=== PATIENT | female | born 1960 | race African-American/Black ===

== ENCOUNTER 2017-04-17 09:11 | Inpatient (IN) ==
[2017-04-17] MEDS ORDERED: FUROSEMIDE 100 MG/10 ML VIAL IV STA (09:44)
[2017-04-17] MEDS ORDERED: methylPREDNISolone SOD SUC 125 MG/2 ML VIAL IV STA (09:44)
[2017-04-17] MEDS ORDERED: ONDANSETRON 4 MG/2 ML VIAL IV STA (09:44)
[2017-04-17] MEDS ORDERED: ASPIRIN 325 MG TABLET PO STA (09:44)
[2017-04-17] MEDS ORDERED: ALBUTEROL/IPRATROPIUM 3 ML NEB RESP TX STA (09:44)
[2017-04-17] MEDS ORDERED: FUROSEMIDE 40 MG/4 ML VIAL ONE (09:59)
[2017-04-17] MEDS ORDERED: ASPIRIN 325 MG TABLET ONE (10:00)
[2017-04-17] MEDS ORDERED: ONDANSETRON 4 MG/2 ML VIAL ONE (10:00)
[2017-04-17] MEDS ORDERED: methylPREDNISolone SOD SUC 125 MG/2 ML VIAL ONE (10:00)
--- NOTE | 2017-04-17 10:03 | EKG Report ---
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
--- NOTE | 2017-04-17 10:11 | XRay Report ---
XR chest 1V portable Indication: Shortness of breath Comparison: None. Technique: Portable AP chest was performed. Findings: Heart size is normal. Pulmonary vasculature appears within normal limits. No significant abnormality of the mediastinal contours demonstrated. Lungs are clear. Bones and soft tissues demonstrate no significant abnormalities. Impression: 1. No evidence of acute pathology. 04/17/2017 10:08 AM PROCEDURE INTERPRETED AT [facility] DEPARTMENT OF RADIOLOGY Final Report Signed by: Dr. Lex Pulido
[2017-04-17 10:18] LABS: ABG Base Excess -0.3 MMOL/L (-2.5-2.5); ABG HCO3 24.2 MMOL/L (20-26); ABG Oxygen Saturation 96.8 % (95-100); ABG PCO2 42.4 MM HG (35-48); ABG PH 7.377 (7.35-7.45); ABG PO2 99.1 MM HG (80-95); ABG TCO2 23.2 MMOL/L (23-27)
[2017-04-17 10:45] LABS: Basophils % 0.2 % (0.0-0.8); Eosinophils # 0.1 10*3/uL (0.0-0.87); Eosinophils % 0.5 % (0.00-10.9); Hematocrit 27.3 VOL% (35.7-47.0); Hemoglobin 8.2 GM/DL (12.0-16.0); Immature Granulocytes % 0.5 %; Immature Granulocytes Absolute 0.06 #; Lymphocytes # 1.8 10*3/uL (1.4-4.0); Lymphocytes % 16.2 % (21.3-54.2); Mean Corpuscular Hemoglobin 27 PG (27-34); Mean Corpuscular Volume 88.6 FL (87-102); Mean Platelet Volume 11.1 FL (9.6-12.0); Monocytes # 0.8 10*3/uL (0.11-0.8); Monocytes % 7.1 % (1.7-12.7); Neutrophils # 8.3 10*3/uL (1.4-7.4); Neutrophils % 75.5 % (38.7-73.9); Platelet Count 130 T/CUMM (130-400); Red Blood Count 3.08 MC/CUMM (3.8-5.5); Red Cell Distribution Width 15.3 % (9.3-17.3)
[2017-04-17 10:53] LABS: Apearance,Urine Slightly Hazy (Clear); Bilirubin,Urine Negative (Negative); Blood, Urine Negative (Negative); Glucose,Urine (UA) Negative (Negative); Hyaline Casts,Urine 25 /LPF (0-3); Ketones,Urine Negative (Negative); Mucus,Urine Occasional /LPF (Occasional); Nitrite,Urine Negative (Negative); Protein,Urine Negative; Urine Color Yellow (Yellow); Urine Specific Gravity 1.019 (1.001-1.035); WBC,Urine <1 /HPF (0-6)
[2017-04-17 10:57] LABS: INR 1.1; PT Patient Result 11.5 SECS
[2017-04-17 11:05] LABS: D-Dimer 13.3 MG/L FEU
--- NOTE | 2017-04-17 11:16 | Emergency Department Note ---
Kisha Magana Mantricia, am scribing for, and in the presence of, Sylvester Duffy MD 10:27. Tati Magana Charles R, MD, personally performed the services described in this documentation, ascribed by Nick Beard in my presence, and it is both accurate and complete . Arrival - Arrival Chief Complaint: Shortness of Breath Stated Complaint: shortness of breath ED Nursing Triage Note: Brought in per EMS from home with c/o shortness of breath onset this am. +productive cough with white sputum. +pedal edema. +left leg pain- denies injury. Denies fever or chest pain. Mode of Arrival: Stretcher Limitations: No Limitations Source: Patient Time Seen by Provider: 04/17/17 09:34 - History of Present Illness HPI Narrative: Pt is a 56 y/o black female arriving to ED with c/o SOB that onset yesterday. She reports that she has also been experiencing chest heaviness and difficulty moving. She states that she had a doctor's appointment this morning at 0930 but was unable to make it due to her difficulty breathing becoming so severe. She reports that sitting up is a modifying factor. Pt has a PMHx of colon cancer and states that she has been in remission for 20 years now; she has not had a chemotherapy session since then. She also c/o left leg pain s/p fx 3 years ago. She states that the injection given by Dr. Anthony on 03/25/17 has not relieved her pain. She states that it feels "like she is carrying loads of cement." Pt has a PSHx of cholecystectomy and a PMHx of HTN. No other complaints were reported to ED. Onset (ago): day(s) Consistency: constant Severity: mild Date of Last Menstrual Period: PM Allergies/Adverse Reactions: Allergies Allergy/AdvReac Type Severity Reaction Status Date / Time No Known Allergies Allergy Verified 04/17/17 09:22 Home Medications: Home Medications Medication Instructions Recorded Confirmed Type Glimepiride [Amaryl] 4 mg PO QAM 03/26/15 04/17/17 History Albuterol Sulfate [Proair HFA] 2 puff INH Q4H PRN 12/23/15 04/17/17 History Aspirin EC Tab 81 mg PO BEDTIME 12/23/15 04/17/17 History Folic Acid Tab 1 mg PO DAILY 12/23/15 04/17/17 History Insulin Glargine [Lantus] 70 unit SUBCUT BEDTIME 12/23/15 04/17/17 History Lansoprazole [Prevacid] 30 mg PO DAILY W/BREAKFAST 12/23/15 04/17/17 History Magnesium Oxide 400 mg PO TID 12/23/15 04/17/17 History Metformin HCl [Glucophage] 1,000 mg PO BID W/MEALS 12/23/15 04/17/17 History Amlodipine Besylate/Benazepril 1 capsule PO QAM 04/17/17 04/17/17 History [Amlodipine-Benazepril 10-40 mg] Biotin 10,000 mcg PO QAM 04/17/17 04/17/17 History Calcium Carbonate/Vitamin D3 1 each PO BID 04/17/17 04/17/17 History [Calcium 600-Vit D3 800 Tablet] Oxycodone HCl/Acetaminophen 1 each PO Q6H PRN 04/17/17 04/17/17 History [Percocet 10-325 mg Tablet] Potassium Chloride [Klor-Con M20] 20 meq PO QAM 04/17/17 04/17/17 History Pregabalin [Lyrica] 75 mg PO TID PRN 04/17/17 04/17/17 History Promethazine Tab [Phenergan Tab] 25 mg PO Q4H PRN 04/17/17 04/17/17 History Tizanidine HCl [Zanaflex] 4 mg PO TID PRN 04/17/17 04/17/17 History hydrALAZINE TAB [Apresoline Tab] 100 mg PO BID 04/17/17 04/17/17 History Review of System - Review of System 12 point system: reviewed and no additional remarkable complaints except as stated - Review of System Constitutional: Absent: chills, diaphoresis Respiratory: Present: respiratory distress (mild), other (SOB). Absent: cough, wheezing Cardiovascular: Absent: chest pain Gastrointestinal: Absent: abdominal pain, nausea, vomiting, diarrhea Musculoskeletal: Present: leg pain (left). Absent: arm pain, back pain, neck pain Medical,Surgical,& Family Hx - Medical History Cardio: History of: CHF, Hypertension Neurology: History of: Migraine No history of: Seizures HEENT: History of: Eye Problem (glasses) No history of: Glaucoma Endocrine: History of: Diabetes Mellitus (IDDM), Diabetes Mellitus (NIDDM), Dyslipidemia No history of: Thyroid Disorder Rheumatology: No history of;: Fibromyalgia Respiratory: History of: Asthma No history of: Obstructive Sleep Apnea Gastrointestinal: History of: GERD, Liver Problems (fatty liver), Polyps, Gastrointestinal Cancer ([id number]) No history of: Hepatitis Musculoskeletal: History of: Back/Neck Problems, Degenerative Disk Disease Hematology: No history of: Blood Transfusion Reaction Reproductive: History of: Ovarian Cysts Other: History of: Cancer (colon) No history of: Anesthesia Reactions - Surgical History Cardiac Surgeries: Patient Denies: Cardiac Catheterization HEENT Surgeries: Patient denies: Eye Surgery, Tonsilectomy & Adenoidectomy Abdominal Surgeries: Surgical HX of: Abdominal Surgery (part of colon removed), Appendectomy, Cholecystectomy, Colonoscopy, Gastric Bypass Surgery (2002), EGD, Hernia Repair Reproductive Surgeries: Surgical HX of;: Hysterectomy Patient denies;: Breast Surgery, Genitourinary Surgery Orthopedic Surgeries: Surgical HX of;: Orthopedic Surgery (left broken tib/fib) - Family History Family History: Reports;: Family Cancer (brother had colon cancer), Family Diabetes (dad and mom), Family Hypertension (father) - Social History Smoking Status: Never smoker Frequency of Alcohol Use: None Type of Drug Use: None Exam Vital Signs: Vital Signs Temperature 97.5 F L 04/17/17 09:11 Pulse Rate 98 H 04/17/17 10:14 Respiratory Rate 15 04/17/17 10:14 Blood Pressure 111/30 04/17/17 09:11 O2 Sat by Pulse Oximetry 96 04/17/17 10:14 - General General appearance: alert, in no apparent distress, obese - Head Head exam: Present: atraumatic, normocephalic, normal inspection - Eye Eye exam: Present: normal appearance, PERRL - ENT ENT exam: Present: normal exam, normal oropharynx, mucous membranes moist, TM's normal bilaterally, normal external ear exam - Neck Neck exam: Present: normal inspection, full ROM, trachea midline. Absent: tenderness - Chest Chest inspection: Present: normal inspection, symmetric chest wall rise. Absent : tenderness - Respiratory Respiratory exam: Present: normal lung sounds bilaterally (at base), rales, respiratory distress (mild) - Cardiovascular Cardiovascular exam: Present: normal rhythm, tachycardia, normal heart sounds - Abdominal Exam Abdominal exam: Present: soft, normal bowel sounds. Absent: distention, tenderness, guarding, rebound - Extremities Exam Extremities exam: Present: normal inspection, full ROM, normal capillary refill , pedal edema, other (+3 pitting edema LE bilat). Absent: tenderness - Back Exam Back exam: Present: normal inspection, full ROM. Absent: tenderness - Neurological Exam Neurological exam: Present: alert, oriented X3, CN II-XII intact, normal gait, reflexes normal - Psychiatric Psychiatric exam: Present: normal affect, normal mood - Skin Skin exam: Present: warm, dry, intact, normal color Course - Consultations Consultation #1: Hospitalist will admit patient Time: 13:10 Results - Labs CBC & BMP: 04/17/17 10:40 04/17/17 10:40 Lab Results: I have reviewed the patients labs Labs: Laboratory Tests 04/17/17 04/17/17 04/17/17 10:10 10:15 10:40 RBC 3.08 L Hgb 8.2 L Hct 27.3 L MCHC 30.0 L Neut % (Auto) 75.5 H Lymph % (Auto) 16.2 L Neut # (Auto) 8.3 H ABG pO2 99.1 H Potassium Anion Gap BUN Creatinine Glucose Calculated Osmolality Calcium Magnesium AST Albumin Globulin Albumin/Globulin Ratio Urine Urobilinogen 2.0 H 04/17/17 10:40 RBC Hgb Hct MCHC Neut % (Auto) Lymph % (Auto) Neut # (Auto) ABG pO2 Potassium 5.4 H Anion Gap 15.4 H BUN 68 H Creatinine 3.60 H Glucose 217 H Calculated Osmolality 309.1 H Calcium 8.4 L Magnesium 2.5 H AST 38 H Albumin 3.0 L Globulin 3.7 H Albumin/Globulin Ratio 0.8 L Urine Urobilinogen - Diagnostic Findings Procedure: Chest x-ray: report reviewed by me (No evidence of acute pathology.) Critical Care Time Critical Care Time: Yes Total Critical Care Time: 60 Disposition Clinical Impression: Tachycardia, Acute dyspnea, History of colon cancer, Hemoptysis, Renal failure , Suspected pulmonary embolism, DVT, bilateral lower limbs, Syncope, Hyperkalemia, diminished renal excretion Case discussed with: patient, patient's family Disposition: Still a Patient Condition: Critical Time of Disposition: 13:35 Contact your physician if you experience:: fever over 101, Difficulty voiding, Redness or swelling, Nausea/Vomiting, Shortness of breath, Bleeding, pain uncontrolled by pain medications, Other Return to the Emergency Department if:: fever over 101, Difficulty voiding, Redness or swelling, Nausea/Vomiting, Shortness of breath, Bleeding, pain uncontrolled by pain medications, Other
[2017-04-17 11:33] LABS: Alanine Aminotransferase 25 U/L (13-56); Alkaline Phosphatase 78 U/L (45-117); Aspartate Amino Transferase 38 U/L (0-37); Blood Urea Nitrogen 68 MG/DL (7-18); Calcium 8.4 MG/DL (8.5-10.1); Glucose 217 MG/DL (74-106); Magnesium 2.5 MG/DL (1.8-2.4); Osmolality,Calculated 309.1 MOS/KG (273-304); Potassium 5.4 MMOL/L (3.5-5.1); Sodium 142 MMOL/L (136-145); Total Protein 6.7 G/DL (6.4-8.3); Troponin I Only < 0.015 NG/ML (0.00-0.045)
--- NOTE | 2017-04-17 13:44 | Ultrasound Report ---
Venous Doppler ultrasound bilateral lower extremities Indication: Pain and swelling Comparison: None available Findings: There is occlusive thrombosis present throughout the left lower extremity. There is occlusion of the right common femoral vein with thrombosis. Remainder of the right lower extremity veins appear patent.. Color Doppler venous waveform pattern is within normal limits in the patent veins. Impression: Deep venous thrombosis as described above. Ultrasound images stored and captured. PROCEDURE INTERPRETED AT [facility] [place] DEPARTMENT OF RADIOLOGY Final Report Signed by: Dr. Wilberto Huerta
--- NOTE | 2017-04-17 14:47 | Hospitalist History & Physical ---
Assessment and Plan (1) Deep vein thrombosis (DVT) of both lower extremities Status: Acute Assessment and plan: Admit to CCU. Check labs in the a.m. Start anticoagulation therapy. Pain management. Current Visit: Yes (2) Hemoptysis Status: Acute Assessment and plan: Patient reports once coughing up a small amount of blood while in the ED. Will continue to monitor. Will continue oxygen therapy. Current Visit: Yes (3) Hyperkalemia Status: Acute Assessment and plan: K 5.4. Will repeat labs in the a.m. Current Visit: Yes (4) Acute renal injury Status: Acute Assessment and plan: BUN 68 and Creatinine 3.60; GFR 22. Will continue to monitor closely. Repeat a.m. labs and check for improvement after fluids. Current Visit: Yes (5) Acute dyspnea Status: Acute Assessment and plan: Improved after Lasix 40mg and oxygen therapy 2L NC (SATs 99% at exam). Will continue to Monitor. Current Visit: Yes History of Present Illness Chief complaint: shortness of breath History of present illness: Ms. Villafuerte is a 56 year old black female presented to [facility] for further evaluation of shortness of breath with onset 4 a.m.. PMHx: CHF, Hypertension, Migraine, Diabetes, Dyslipidemia, asthma, GERD, Fatty liver, Colon cancer (remission x20 years), Degenerative disk disease, ovarian cyst. She reports having IVC filter placed while in [place] at the time of her colon cancer diagnosis, "not sure of the reason but never had blood clots before". She reports getting up from bed and started feeling short of breath and feeling heaviness in her chest and legs. She reports normally ambulating without assistance but this morning had to use a cane to get to the door to let family into home. Since arrival to the ED: placed on oxygen and given 40 mg lasix, she reports feeling better and able to breath more easily. At exam SATs 99% and HR 104-177. She is able to talk without difficult and denies any chest pain, fever, chills. She reports coughing up a small amount of blood since her arrival to the ED but nothing prior. She sees Dr Arguelles for chronic left leg pain (s/p fx 3 years ago) and back pain, last seen 03/25/17. PCP: Dr Suarez. After discussion with ED physician Dr Duffy and Dr Freeman hospitalist services, it was agreed the patient would need to be admitted to critical care unit for further close monitor and evaluation. Home medications will be reviewed and reconciliation to follow. Home Medications Medication Instructions Recorded Confirmed Type Glimepiride [Amaryl] 4 mg PO QAM 03/26/15 04/17/17 History Albuterol Sulfate [Proair HFA] 2 puff INH Q4H PRN 12/23/15 04/17/17 History Aspirin EC Tab 81 mg PO BEDTIME 12/23/15 04/17/17 History Folic Acid Tab 1 mg PO DAILY 12/23/15 04/17/17 History Insulin Glargine [Lantus] 70 unit SUBCUT BEDTIME 12/23/15 04/17/17 History Lansoprazole [Prevacid] 30 mg PO DAILY W/BREAKFAST 12/23/15 04/17/17 History Magnesium Oxide 400 mg PO TID 12/23/15 04/17/17 History Metformin HCl [Glucophage] 1,000 mg PO BID W/MEALS 12/23/15 04/17/17 History Amlodipine Besylate/Benazepril 1 capsule PO QAM 04/17/17 04/17/17 History [Amlodipine-Benazepril 10-40 mg] Biotin 10,000 mcg PO QAM 04/17/17 04/17/17 History Calcium Carbonate/Vitamin D3 1 each PO BID 04/17/17 04/17/17 History [Calcium 600-Vit D3 800 Tablet] Oxycodone HCl/Acetaminophen 1 each PO Q6H PRN 04/17/17 04/17/17 History [Percocet 10-325 mg Tablet] Potassium Chloride [Klor-Con M20] 20 meq PO QAM 04/17/17 04/17/17 History Pregabalin [Lyrica] 75 mg PO TID PRN 04/17/17 04/17/17 History Promethazine Tab [Phenergan Tab] 25 mg PO Q4H PRN 04/17/17 04/17/17 History Tizanidine HCl [Zanaflex] 4 mg PO TID PRN 04/17/17 04/17/17 History hydrALAZINE TAB [Apresoline Tab] 100 mg PO BID 04/17/17 04/17/17 History Allergies Allergy/AdvReac Type Severity Reaction Status Date / Time No Known Allergies Allergy Verified 04/17/17 09:22 Medical,Surgical,& Family Hx - Medical History Cardio: History of: CHF, Hypertension Neurology: History of: Migraine No history of: Seizures HEENT: History of: Eye Problem (glasses) No history of: Glaucoma Endocrine: History of: Diabetes Mellitus (IDDM), Diabetes Mellitus (NIDDM), Dyslipidemia No history of: Thyroid Disorder Rheumatology: No history of;: Fibromyalgia Respiratory: History of: Asthma No history of: Obstructive Sleep Apnea Gastrointestinal: History of: GERD, Liver Problems (fatty liver), Polyps, Gastrointestinal Cancer ([id number]) No history of: Hepatitis Musculoskeletal: History of: Back/Neck Problems, Degenerative Disk Disease Hematology: No history of: Blood Transfusion Reaction Reproductive: History of: Ovarian Cysts Other: History of: Cancer (colon) No history of: Anesthesia Reactions - Surgical History Cardiac Surgeries: Patient Denies: Cardiac Catheterization HEENT Surgeries: Patient denies: Eye Surgery, Tonsilectomy & Adenoidectomy Abdominal Surgeries: Surgical HX of: Abdominal Surgery (part of colon removed), Appendectomy, Cholecystectomy, Colonoscopy, Gastric Bypass Surgery (2002), EGD, Hernia Repair Reproductive Surgeries: Surgical HX of;: Hysterectomy Patient denies;: Breast Surgery, Genitourinary Surgery Orthopedic Surgeries: Surgical HX of;: Orthopedic Surgery (left broken tib/fib) - Family History Family History: Reports;: Family Cancer (brother had colon cancer), Family Diabetes (dad and mom), Family Hypertension (father) - Social History Smoking Status: Never smoker Frequency of Alcohol Use: None Type of Drug Use: None Lives With:: Alone Functional capacity: independent ambulation Review of systems: ROS completed and pertinent positives and negatives in HPI. Exam - Constitutional Vitals: Period Temp Pulse Resp BP Sys/Hernandez Pulse Ox Last 24 Hr 97.5 F-97.5 F 98-109 14-24 111-111/30-30 95-98 General appearance: over weight - Head Head exam: Present: normal inspection - Eye Eye exam: Present: EOMI Pupils: Present: ARIAN - Neck Neck exam: Present: normal inspection. Absent: thyromegaly - Respiratory Respiratory exam: Present: clear to auscultation bilaterally - Cardiovascular Cardiovascular exam: Present: tachycardia (104-177s) - GI/Abdominal GI/Abdominal exam: Present: normal bowel sounds, soft. Absent: guarding, tenderness, rebound - Extremities Exam Extremities exam: Present: full ROM, edema (LLE 3+ edema and RLE 2+ edema) - Neurological Exam Neurological exam: Present: alert, oriented X3, CN II-XII intact - Psychiatric Psychiatric exam: Present: normal affect, normal mood - Skin Skin exam: Present: normal color, warm, dry Results - Labs CBC & BMP: 04/17/17 10:40 04/17/17 10:40 Lab Results: I have reviewed the past 24 hour labs - Impressions Venous Doppler ultrasound bilateral lower extremities Indication: Pain and swelling Comparison: None available Findings: There is occlusive thrombosis present throughout the left lower extremity. There is occlusion of the right common femoral vein with thrombosis. Remainder of the right lower extremity veins appear patent.. Color Doppler venous waveform pattern is within normal limits in the patent veins. Impression: Deep venous thrombosis as described above. - Diagnostic Findings Procedure: Chest x-ray: report reviewed by me (no evidence of acute pathology), Ultrasound: report reviewed by me (venous doppler: deep venous thrombosis: occlusive thrombosis present throughout the left lower extremity, there is occlusion of the right common femoral vein with trhombosis)
[2017-04-17] MEDS ORDERED: ACETAMINOPHEN 325 MG TABLET PO PRN (15:16)
[2017-04-17] MEDS ORDERED: ONDANSETRON 4 MG/2 ML VIAL IV PRN (15:16)
[2017-04-17] MEDS ORDERED: DEXTROSE 50% 25 GM/50 ML VIAL IV PRN (15:25)
[2017-04-17] MEDS ORDERED: GLUCAGON 1 MG VIAL IM PRN (15:25)
[2017-04-17] MEDS ORDERED: ALBUTEROL 2.5 MG/3 ML NEB RESP TX PRN (15:25)
[2017-04-17] MEDS: SODIUM CHLORIDE 0.9% 1,000 ML IV SCH (15:48)
--- NOTE | 2017-04-17 16:59 | ECHO Report ---
Rody Villafuerte 04/17/2017 Exam Date: 15:07 Referring Physician: Natalee Caal Technologist: MELY Age: 56 Ht (in): 67 Wt (lb): 300 FExam [facility] Gender: Echo [id number]: Shortness of breath, Essential (priIndications:rody) hypertension, Bilateral DVT, IDDM BP: 111 / 30 HR: 104 SinusRhythm: Technical Quality: IMPRESSIONS Left ventricular ejection fraction is estimated at is greater than 65 %. There is grade I diastolic dysfunction. Tricuspid regurgitation velocities suggest a RVSP of 24 mmHg. MEASUREMENTS (Male / Female) Normal Values 2D ECHO LV Diastolic Diameter PLAX 4.1 cm 4.2 - 5.9 / 3.9 - 5.3 cm LV Systolic Diameter PLAX 3.4 cm LV Fractional Shortening PLAX 17.0 % IVS Diastolic Thickness 1.0 cm 0.6 - 1.0 / 0.6 - 0.9 cm LVPW Diastolic Thickness 1.0 cm 0.6 - 1.0 / 0.6 - 0.9 cm RV Internal Dim ED PLAX 3.4 cm Aortic Root Diameter 3.4 cm LA Systolic Diameter LX 3.6 cm 3.0 - 4.0 / 2.7 - 3.8 cm DOPPLER TR Peak Velocity 243.0 cm/s TR Peak Gradient 23.6 mmHg FINDINGS Left Ventricle Normal left ventricular cavity size. Normal left ventricular wall thickness. Left ventricular ejection fraction is estimated at is greater than 65 %. There is grade I diastolic dysfunction. Right Ventricle The right ventricle is normal in size and function. Right Atrium The right atrium is normal in size. Left Atrium The left atrium is normal in size. Mitral Valve Morphologically normal mitral valve without significant stenosis or prolapse. There is no mitral regurgitation. Aortic Valve Morphologically normal aortic valve without significant sclerosis or stenosis. There is no aortic regurgitation. Tricuspid Valve Morphologically normal tricuspid valve. Trace tricuspid valve regurgitation. Tricuspid regurgitation velocities suggest a RVSP of 24 mmHg. Pulmonic Valve Morphologically normal pulmonic valve without significant stenosis. There is no pulmonic regurgitation. Pericardium Normal pericardium without effusion. Aorta Normal ascending aorta dimension. Ashley Pedraza (Electronically Signed) 17 April 2017 Final Date: 16:58
[2017-04-17] MEDS: INSULIN LISPRO 100 UNIT/ML SUBCUT SCH ×2 (17:09→21:45)
[2017-04-17] MEDS: ENOXAPARIN 150 MG/ML SYRINGE SUBCUT SCH (17:09)
--- NOTE | 2017-04-17 17:39 | Pulmonology Consult Note ---
Assessment and Plan (1) Suspected pulmonary embolism Status: Acute Assessment and plan: Shortness of breath and hemoptysis in a patient with extensive bilateral DVT. The IVC umbrella was placed over 20 years ago and probably is not doing much to protect her lungs. Needs probably lifelong anticoagulation. She does not have pulmonary hypertension she does not have hypotension. She is a little tachycardic. This is not a massive embolism. I think standard therapy would be indicated. She is on Lovenox at present. Coumadin or 1 of the newer anticoagulants could follow. Current Visit: Yes (2) Deep vein thrombosis (DVT) of both lower extremities Status: Acute Assessment and plan: Continuing full dose Lovenox. Current Visit: Yes (3) Acute renal injury Status: Acute Assessment and plan: Nephrology is following Current Visit: Yes History of Present Illness Chief complaint: Leg swelling and pain, shortness of breath History of present illness: Ms. Villafuerte is a 56 year old female who got up at 7:00 this morning and she was not able to move her left leg because it was swollen and painful. She had her family bring her to the emergency room was found to have extensive bilateral DVT worse on the left side. Chest x-ray was clear. They were not able to do a CT angiogram because of renal insufficiency. She has a history of having an IVC placed over 20 years ago in [place] when she had colon surgery done. She says that she did not have a blood clot at that time but never has taken blood thinners. She is a non-smoker. No history of any heart disease. She has acute kidney injury apparently as well. She has coughed up some blood.. She relates that she rode in a car to [place] and back about 3 weeks ago. Also had a leg fracture a couple of years back Home Medications Medication Instructions Recorded Confirmed Type Glimepiride [Amaryl] 4 mg PO QAM 03/26/15 04/17/17 History Albuterol Sulfate [Proair HFA] 2 puff INH Q4H PRN 12/23/15 04/17/17 History Aspirin EC Tab 81 mg PO BEDTIME 12/23/15 04/17/17 History Folic Acid Tab 1 mg PO DAILY 12/23/15 04/17/17 History Insulin Glargine [Lantus] 70 unit SUBCUT BEDTIME 12/23/15 04/17/17 History Lansoprazole [Prevacid] 30 mg PO DAILY W/BREAKFAST 12/23/15 04/17/17 History Magnesium Oxide 400 mg PO TID 12/23/15 04/17/17 History Metformin HCl [Glucophage] 1,000 mg PO BID W/MEALS 12/23/15 04/17/17 History Amlodipine Besylate/Benazepril 1 capsule PO QAM 04/17/17 04/17/17 History [Amlodipine-Benazepril 10-40 mg] Biotin 10,000 mcg PO QAM 04/17/17 04/17/17 History Calcium Carbonate/Vitamin D3 1 each PO BID 04/17/17 04/17/17 History [Calcium 600-Vit D3 800 Tablet] Oxycodone HCl/Acetaminophen 1 each PO Q6H PRN 04/17/17 04/17/17 History [Percocet 10-325 mg Tablet] Potassium Chloride [Klor-Con M20] 20 meq PO QAM 04/17/17 04/17/17 History Pregabalin [Lyrica] 75 mg PO TID PRN 04/17/17 04/17/17 History Promethazine Tab [Phenergan Tab] 25 mg PO Q4H PRN 04/17/17 04/17/17 History Tizanidine HCl [Zanaflex] 4 mg PO TID PRN 04/17/17 04/17/17 History hydrALAZINE TAB [Apresoline Tab] 100 mg PO BID 04/17/17 04/17/17 History Allergies Allergy/AdvReac Type Severity Reaction Status Date / Time No Known Allergies Allergy Verified 04/17/17 09:22 - Cardiovascular Cardiovascular: Present: dyspnea, dyspnea on exertion, edema - Respiratory Respiratory: Present: dyspnea, hemoptysis, dyspnea on exertion Exam (Pulmonay) H&P - Constitutional Vitals: Period Temp Pulse Resp BP Sys/Hernandez Pulse Ox Last 24 Hr 97.5 F-98.1 F 98-109 14-24 106-144/30-88 95-99 Exam: Patient is alert and oriented. Vital signs normal except for pulse of 107. O2 sat 99% on 2 L. HEENT: Pupils react to light. Throat is clear. Neck is supple no bruits. Chest sounds clear. Heart normal rate rhythm no murmurs. Abdomen soft nontender no masses. Extremities she has 4+ edema bilaterally in both calves were somewhat tight. Medical,Surgical,& Family Hx - Medical History Cardio: History of: CHF, Hypertension Neurology: History of: Migraine No history of: Seizures HEENT: History of: Eye Problem (glasses) No history of: Glaucoma Endocrine: History of: Diabetes Mellitus (IDDM), Diabetes Mellitus (NIDDM), Dyslipidemia No history of: Thyroid Disorder Rheumatology: No history of;: Fibromyalgia Respiratory: History of: Asthma No history of: Obstructive Sleep Apnea Gastrointestinal: History of: GERD, Liver Problems (fatty liver), Polyps, Gastrointestinal Cancer ([id number]) No history of: Hepatitis Musculoskeletal: History of: Back/Neck Problems, Degenerative Disk Disease Hematology: No history of: Blood Transfusion Reaction Reproductive: History of: Ovarian Cysts Other: History of: Cancer (colon) No history of: Anesthesia Reactions - Surgical History Cardiac Surgeries: Patient Denies: Cardiac Catheterization HEENT Surgeries: Patient denies: Eye Surgery, Tonsilectomy & Adenoidectomy Abdominal Surgeries: Surgical HX of: Abdominal Surgery (part of colon removed), Appendectomy, Cholecystectomy, Colonoscopy, Gastric Bypass Surgery (2002), EGD, Hernia Repair Reproductive Surgeries: Surgical HX of;: Hysterectomy Patient denies;: Breast Surgery, Genitourinary Surgery Orthopedic Surgeries: Surgical HX of;: Orthopedic Surgery (left broken tib/fib) - Family History Family History: Reports;: Family Cancer (brother had colon cancer), Family Diabetes (dad and mom), Family Hypertension (father) - Social History Smoking Status: Never smoker Frequency of Alcohol Use: None Type of Drug Use: None Results - Labs CBC & BMP: 04/17/17 10:40 04/17/17 10:40 Lab Results: I have reviewed the past 24 hour labs - Diagnostic Findings Procedure: Chest x-ray: image reviewed by me (Lungs are clear. Heart size appears normal.), Ultrasound: report reviewed by me (Extensive DVT on the left, proximal DVT on the right) Quality Measures - VTE Contraindication to Pharmacological VTE Prophylaxis: Already on Theraputic Agent , No Prophylaxis Needed
--- NOTE | 2017-04-17 18:02 | Nephrology Consult Note ---
History of Present Illness Chief complaint: Acute versus acute on chronic renal failure History of present illness: Ms. Villafuerte is a 56 year old female history of colon cancer that dates back 20 years ago history of a colostomy diabetes hypertension is followed by Dr. Suarez. The patient presented with a one-day history of increased leg swelling and weakness where she was not able to walk on her left leg. She mentions that she had been feeling a little short of breath. There is a history of patient serum creatinine being elevated that date back to January of this year with a creatinine of 2. At that time patient had follow-up with a renal ultrasound that showed no evidence of hydronephrosis in the kidney size was noted to be 10.3 cm on the right and 9.6 cm on the left. She gives no history of any other issues with her kidneys. Denies NSAID use. However patient is found to have a DVT and serum creatinine is noted to be 3.6. While in the emergency room, the patient did have an episode of hemoptysis. She is now on oxygen therapy sats are 96%. Nephrology is been consulted for renal issues. Home Medications Medication Instructions Recorded Confirmed Type Glimepiride [Amaryl] 4 mg PO QAM 03/26/15 04/17/17 History Albuterol Sulfate [Proair HFA] 2 puff INH Q4H PRN 12/23/15 04/17/17 History Aspirin EC Tab 81 mg PO BEDTIME 12/23/15 04/17/17 History Folic Acid Tab 1 mg PO DAILY 12/23/15 04/17/17 History Insulin Glargine [Lantus] 70 unit SUBCUT BEDTIME 12/23/15 04/17/17 History Lansoprazole [Prevacid] 30 mg PO DAILY W/BREAKFAST 12/23/15 04/17/17 History Magnesium Oxide 400 mg PO TID 12/23/15 04/17/17 History Metformin HCl [Glucophage] 1,000 mg PO BID W/MEALS 12/23/15 04/17/17 History Amlodipine Besylate/Benazepril 1 capsule PO QAM 04/17/17 04/17/17 History [Amlodipine-Benazepril 10-40 mg] Biotin 10,000 mcg PO QAM 04/17/17 04/17/17 History Calcium Carbonate/Vitamin D3 1 each PO BID 04/17/17 04/17/17 History [Calcium 600-Vit D3 800 Tablet] Oxycodone HCl/Acetaminophen 1 each PO Q6H PRN 04/17/17 04/17/17 History [Percocet 10-325 mg Tablet] Potassium Chloride [Klor-Con M20] 20 meq PO QAM 04/17/17 04/17/17 History Pregabalin [Lyrica] 75 mg PO TID PRN 04/17/17 04/17/17 History Promethazine Tab [Phenergan Tab] 25 mg PO Q4H PRN 04/17/17 04/17/17 History Tizanidine HCl [Zanaflex] 4 mg PO TID PRN 04/17/17 04/17/17 History hydrALAZINE TAB [Apresoline Tab] 100 mg PO BID 04/17/17 04/17/17 History Allergies Allergy/AdvReac Type Severity Reaction Status Date / Time No Known Allergies Allergy Verified 04/17/17 09:22 Medical,Surgical,& Family Hx - Medical History Cardio: History of: CHF, Hypertension Neurology: History of: Migraine No history of: Seizures HEENT: History of: Eye Problem (glasses) No history of: Glaucoma Endocrine: History of: Diabetes Mellitus (IDDM), Diabetes Mellitus (NIDDM), Dyslipidemia No history of: Thyroid Disorder Rheumatology: No history of;: Fibromyalgia Respiratory: History of: Asthma No history of: Obstructive Sleep Apnea Gastrointestinal: History of: GERD, Liver Problems (fatty liver), Polyps, Gastrointestinal Cancer ([id number]) No history of: Hepatitis Musculoskeletal: History of: Back/Neck Problems, Degenerative Disk Disease Hematology: No history of: Blood Transfusion Reaction Reproductive: History of: Ovarian Cysts Other: History of: Cancer (colon) No history of: Anesthesia Reactions - Surgical History Cardiac Surgeries: Patient Denies: Cardiac Catheterization HEENT Surgeries: Patient denies: Eye Surgery, Tonsilectomy & Adenoidectomy Abdominal Surgeries: Surgical HX of: Abdominal Surgery (part of colon removed), Appendectomy, Cholecystectomy, Colonoscopy, Gastric Bypass Surgery (2002), EGD, Hernia Repair Reproductive Surgeries: Surgical HX of;: Hysterectomy Patient denies;: Breast Surgery, Genitourinary Surgery Orthopedic Surgeries: Surgical HX of;: Orthopedic Surgery (left broken tib/fib) - Family History Family History: Reports;: Family Cancer (brother had colon cancer), Family Diabetes (dad and mom), Family Hypertension (father) - Social History Smoking Status: Never smoker Frequency of Alcohol Use: None Type of Drug Use: None Review of Systems Constitutional: fatigue Cardiovascular: dyspnea, no chest pain with activity Neurological: no behavioral changes Exam - Vital Signs Vital signs: Period Temp Pulse Resp BP Sys/Hernandez Pulse Ox Last 24 Hr 97.5 F-98.1 F 98-109 14-24 106-144/30-88 95-99 - General Appearance General appearance: well-developed, well-nourished EENT: ATNC Neck: supple Respiratory: clear Cardiology: edema (2+ edema on the left lower leg.), regular rate, regular rhythm Gastrointestinal: normoactive bowel sounds, no tenderness (Ostomy bag appreciated), no guarding Neurologic: alert and oriented x3 Musculoskeletal: no clubbing Psychiatric: mood/affect appropriate, cooperative Results - Labs CBC & BMP: 04/17/17 10:40 04/17/17 10:40 Assessment and Plan (1) Deep vein thrombosis (DVT) of both lower extremities Status: Acute Current Visit: Yes (2) Hemoptysis Status: Acute Assessment and plan: Patient with DVT. On weight-based Lovenox. Currently on oxygen therapy which sats are stable. Current Visit: Yes (3) History of colon cancer Status: Chronic Assessment and plan: This dates back 20 years ago. Patient has a colostomy bag in place. Current Visit: Yes (4) Hyperkalemia Status: Acute Current Visit: Yes (5) Renal failure Status: Acute Assessment and plan: Appears to be acute on chronic renal failure. Serum creatinine was noted to be 2.0 back in January of this year. The first part of the year serum creatinine was noted to be 1.3. Repeat BMP in a.m. Avoid nephrotoxic agents. Strict I's and O's. Repeat renal ultrasound in a.m. Current Visit: Yes Qualifiers: Renal failure chronicity: acute on chronic Chronic kidney disease stage: stage 3 (moderate) (6) Hypertension Status: Chronic Current Visit: No Qualifiers: Hypertension type: essential hypertension Qualified Code(s): I10 - Essential (primary) hypertension
--- NOTE | 2017-04-17 18:15 | XRay Report ---
History: Dyspnea. DVT. Renal failure. ? IVC filter Date: 04/17/2017 Study: KUB Comparison exam: No previous KUB The bowel gas pattern is nonobstructive without gross mass lesion. Surgical clips overlie the pelvis and right upper abdomen. There is moderate renal artery arterial calcification. IVC filter overlies the region of the IVC at the L2-L3 level. There is mild lumbar spondylosis. Impression: No acute abdominal process. IVC filter PROCEDURE INTERPRETED AT [facility] DEPARTMENT OF RADIOLOGY Final Report Signed by: Dr. Sabra Li
--- NOTE | 2017-04-17 20:43 | Ultrasound Report ---
History: Acute renal failure Date: 04/17/2017 Study: Renal ultrasound bilateral kidneys only Comparison exam: Abdominal ultrasound February 13, 2017 Real-time ultrasound images are captured and archived. The right kidney measures 10.4 x 5.0 x 5.0 cm; the left kidney measures 10.3 x 4.9 x 4.9 cm. The renal parenchyma is hypoechoic to the hepatic parenchyma. There is no renal mass. There is no hydronephrosis or abnormal perinephric fluid. Impression: Normal renal ultrasound PROCEDURE INTERPRETED AT [facility] DEPARTMENT OF RADIOLOGY Final Report Signed by: Dr. Sabra Li
[2017-04-18] MEDS: PREGABALIN 75 MG CAPSULE PO PRN ×2 (00:19→21:50)
[2017-04-18] MEDS: tiZANidine 4 MG TABLET PO PRN ×2 (00:19→21:50)
[2017-04-18 03:50] LABS: ABG Base Excess 0.7 MMOL/L (-2.5-2.5); ABG Oxygen Saturation 95.4 % (95-100); ABG PCO2 45.4 MM HG (35-48); ABG TCO2 23.8 MMOL/L (23-27); Allen Test Positive
[2017-04-18] MEDS: SODIUM CHLORIDE 0.9% 1,000 ML IV SCH ×3 (04:01→18:29)
[2017-04-18 05:56] LABS: Basophils % 0.1 % (0.0-0.8); Hemoglobin 8.4 GM/DL (12.0-16.0); Immature Granulocytes % 0.9 %; Immature Granulocytes Absolute 0.07 #; Lymphocytes # 1.4 10*3/uL (1.4-4.0); Lymphocytes % 17.9 % (21.3-54.2); Mean Corpuscular Hemoglobin 27 PG (27-34); Mean Corpuscular Volume 88.3 FL (87-102); Mean Platelet Volume 11.8 FL (9.6-12.0); Monocytes # 0.5 10*3/uL (0.11-0.8); Monocytes % 6.1 % (1.7-12.7); Neutrophils # 5.7 10*3/uL (1.4-7.4); Platelet Count 157 T/CUMM (130-400); Red Blood Count 3.17 MC/CUMM (3.8-5.5); Red Cell Distribution Width 14.8 % (9.3-17.3); White Blood Count 7.6 T/CUMM (4-12)
[2017-04-18 05:57] LABS: INR 1.1; PT Patient Result 11.3 SECS
[2017-04-18 06:32] LABS: Calcium 8.4 MG/DL (8.5-10.1); Magnesium 2.8 MG/DL (1.8-2.4); Osmolality,Calculated 307.3 MOS/KG (273-304); Potassium 5.7 MMOL/L (3.5-5.1)
--- NOTE | 2017-04-18 06:59 | EKG Report ---
Stationary ECG Study [facility] Test Date: 04/18/2017 7:00:13 AM Pat Name: LA[place] NOV[place] Department: Room: 130 Gender: F Fancy Stitcher: EPIFANIO : 1960 Requested by: Delores Andrews Order Number: [id number] Reading MD: TARA JAMES Intervals [place] Rate: 92 P: 49 MI: 140 QRS: 7 QRSD: 96 T: 21 QT: 379 QTc: 429 Interpretive Statements SINUS RHYTHM LOW QRS VOLTAGE IN PRECORDIAL LEADS LEFT ATRIAL ABNORMALITY Electronically Signed On 04-20-17 14:06:09 CDT by TARA JAMES [email or web address]
--- NOTE | 2017-04-18 07:21 | Pulmonology Progress Note ---
Pulmonary - PN: Subj Interval history: This 56-year-old white female has severe bilateral DVT worse on the left side. Having a good bit of pain in the left leg. She has an IVC umbrella that was placed about 20 years ago. Signs and symptoms of a pulmonary embolus with hemoptysis. Unable to do CT PE protocol because of renal insufficiency. Has clear chest x-ray. VQ lung scan is ordered today she still having a good bit of pain in the left leg. It remains quite swollen. Will ask interventional radiology to look at her and see if catheter directed intravenous TPA would be of help. Exam (Progress Note) - Constitutional Vitals: Period Temp Pulse Resp BP Sys/Hernandez Pulse Ox Last 24 Hr 97.0 F-98.4 F 70-119 13-26 88-164/30-110 95-100 Exam: Patient's alert oriented. Pulse is now down in the 90s. Vital signs normal. The post react to light. Throat is clear. Neck supple no bruits. Chest is clear equal breath sounds. Heart normal rate and rhythm no murmurs. Abdomen soft nontender no masses. Extremities both legs swollen worse on the left than the right tender calves. Results - Labs CBC & BMP: 04/18/17 04:13 04/18/17 04:13 Lab Results: I have reviewed the past 24 hour labs Assessment and Plan (1) Suspected pulmonary embolism Status: Acute Assessment and plan: Shortness of breath and hemoptysis in a patient with extensive bilateral DVT. The IVC umbrella was placed over 20 years ago and probably is not doing much to protect her lungs. Needs probably lifelong anticoagulation. She does not have pulmonary hypertension she does not have hypotension. She is a little tachycardic. This is not a massive embolism. I think standard therapy would be indicated. She is on Lovenox at present. Coumadin or 1 of the newer anticoagulants could follow. 04/18/2017 patient is on full dose Lovenox. VQ lung scan is pending. She will need for anticoagulants whether is positive or not but we need to know whether she has had a pulmonary embolus. Current Visit: Yes (2) Deep vein thrombosis (DVT) of both lower extremities Status: Acute Assessment and plan: Continuing full dose Lovenox. 04/18/2017 will ask interventional radiology to see if catheter directed thrombolytic therapy might be helpful for her left leg. She is still having a good bit of pain Current Visit: Yes (3) Acute renal injury Status: Acute Assessment and plan: Nephrology is following 04/18/2017 creatinine better, down to 2.5 today Current Visit: Yes
[2017-04-18] MEDS ORDERED: PREGABALIN 75 MG CAPSULE PO PRN (08:37)
[2017-04-18] MEDS ORDERED: NON-FORMULARY MEDICATION (Tizanidine Hcl [Zanaflex] 4 MG) PO PRN (08:37)
--- NOTE | 2017-04-18 08:43 | Hospitalist Progress Note ---
Assessment and Plan (1) Deep vein thrombosis (DVT) of both lower extremities Status: Acute Assessment and plan: The patient is being anticoagulated with Lovenox. Will consider transition to Eliquis versus Coumadin versus Xarelto. Interventional radiology consult for potential TPA therapy due to significant pain from swelling related to the DVT. She is undergoing a workup for pulmonary embolism at this time. Echocardiogram reviewed. VQ scan pending. Pulmonary following. Okay to transfer to the floor if not receiving TPA for the DVT Current Visit: Yes Qualifiers: Chronicity: acute (2) Acute renal injury Status: Acute Assessment and plan: Improving with IV fluids. Nephrology following. Renal ultrasound without obstruction. Current Visit: Yes (3) Diabetes type 2, controlled Status: Chronic Assessment and plan: Diabetic diet, sliding scale insulin with Accu-Cheks. Home insulin resumed. 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 No acute events overnight. Case discussed with nursing staff. Labs reviewed. Pulmonary consult reviewed. Renal ultrasound without obstruction. Creatinine improving. Patient is scheduled for VQ scan this morning. She complains of lower extremity pain and swelling related to her DVTs. She is receiving subcutaneous Lovenox injection that is renally dosed. Her home medications have been reviewed and reconciled. An interventional radiology consult has been placed for consideration of lytic therapy for her lower extremity DVTs due to her pain associated with the swelling. Echocardiogram shows no evidence of right heart failure or pulmonary hypertension. EF 65% with grade 1 diastolic dysfunction. Exam - Constitutional Vitals: Period Temp Pulse Resp BP Sys/Hernandez Pulse Ox Last 24 Hr 97.0 F-98.4 F 70-119 13-26 88-164/30-110 95-100 Exam: Constitutional System: No distress. No tremulousness. Morbidly obese Head: Normocephalic, atraumatic. Ears, Nose and Throat System: No pain or tenderness. No epistaxis or discharge Eyes System: Pupils equal, round, and reactive. Extraocular muscles intact. Neck: Supple, without adenopathy, No jugular venous distention. No thyromegaly, neck mass, or prior surgery apparent. Respiratory System: Chest clear to auscultation. Cardiovascular System: Heart with regular rate and rhythm. No murmur. GI System: Abdomen soft, nontender. Normo active bowel sounds present. Colostomy noted. Musculoskeletal System: limbs with bilateral pedal edema. Worse on the left than the right. Full distal pulses. Neurological System: No discernable sensory deficit. No aphasia Psychiatric System: Conversation is rational Results - Labs CBC & BMP: 04/18/17 04:13 04/18/17 04:13 Lab Results: I have reviewed the past 24 hour labs - Diagnostic Findings Procedure: KUB x-ray: report reviewed by me, Ultrasound: report reviewed by me Quality Measures - VTE Contraindication to Pharmacological VTE Prophylaxis: Already on Theraputic Agent , No Prophylaxis Needed
[2017-04-18] MEDS ORDERED: NON-FORMULARY MEDICATION (Biotin [Biotin] 10,000 MCG) PO SCH (09:00)
[2017-04-18] MEDS ORDERED: ALBUTEROL 2.5 MG/3 ML NEB RESP TX PRN (09:00)
--- NOTE | 2017-04-18 09:42 | Nuclear Medicine Report ---
History: Extensive DVT. Dyspnea Date: 04/18/2017 Study: Nuclear medicine ventilation/perfusion lung scan Comparison exam: Chest x-ray 04/17/2017 Following the inhalation of 40 mCi aerosolized technetium 99m DTPA, images were acquired over the lungs in 3 projections for the purpose of a portable technique ventilation scan. Then, following the IV administration of 5 mCi technetium 99m MAA, images were acquired of the lungs in the same projections for the purpose of a perfusion scan. There is no moderate or large unmatched segmental perfusion defect within either lung. There is a single small matched areas of decreased ventilation and perfusion inferiorly in the right middle lobe without obvious corresponding radiographic infiltrate. This is only seen on the SYRIAC view. Impression: The study is abnormal, but is considered low probability for pulmonary embolic disease PROCEDURE INTERPRETED AT [facility] [place] DEPARTMENT OF RADIOLOGY Final Report Signed by: Dr. Sabra Li
[2017-04-18] MEDS: INSULIN LISPRO 100 UNIT/ML SUBCUT SCH ×4 (10:36→21:51)
[2017-04-18] MEDS: FOLIC ACID 1 MG TABLET PO SCH (10:37)
[2017-04-18] MEDS: CALCIUM (CARBONATE)/VITAMIN D 600 MG-400 UNIT TABLET PO SCH ×2 (10:37→21:49)
[2017-04-18] MEDS: GLIMEPIRIDE 4 MG TABLET PO SCH (10:37)
[2017-04-18] MEDS: oxyCODONE/ACETAMINOPHEN 5-325 MG TABLET PO PRN ×2 (10:38→16:25)
[2017-04-18] MEDS: MAGNESIUM OXIDE 400 MG TABLET PO SCH ×3 (10:38→22:24)
[2017-04-18] MEDS: PANTOPRAZOLE 40 MG TABLET PO SCH (10:38)
--- NOTE | 2017-04-18 12:12 | Inventional Radiology Consult ---
Assessment and Plan - Time spent with patient Time spent with patient: Greater than 30 minutes (1) Deep vein thrombosis (DVT) of both lower extremities Problem details: extensive LLE devt on us, no definite PE (unlikely with IVC filter) Status: Acute Assessment and plan: At this point, given the significant symptomatic improvement with overnight anticoagulation therapy, I would suggest holding off on any catheter directed therapy. Renal function is improving. However, would consider noncontrast CT scan of the abdomen/pelvis as baseline evaluation for possible ileocaval thrombus if symptoms worsen. I do not suspect this at this time given overnight improvement. Overall, suggestion would to continue with full dose Lovenox for approximately 3-4 weeks and then transition to oral anticoagulation. We would be happy to see her in 1 month in IR clinic if needed. Current Visit: Yes Qualifiers: Chronicity: acute IR Consult - Data of Consult Patient: new to practice Consult date: 04/18/17 Requesting Physician: Ana Freeman - Consult Narrative Reason for consult: bilateral DVT with left leg pain and numbness History of present illness: Noy is a 56 year old F 56 year-old female admitted with left leg pain swelling. She was discovered to have severe DVT throughout the left lower extremity and moderate thrombus within the right common femoral vein. Overnight , she has been treated with fullness Lovenox and reports this morning that she has improved sensation with much less pain in the left lower extremity. Additionally, patient and family and the room state that the swelling within both lower extremities (especially left lower extremity) is much improved since the prior day. Other medical history includes history of colon cancer approximately 15 years ago. She also has history of morbid obesity and gastric bypass surgery performed approximately 14 years ago. Patient also had an IVC filter placed around the time of the surgeries but has had no other episodes or reported issues related to deep venous thrombosis. Reportedly one week ago she was in her normal state of health. No allergies. No history of heart attack or stroke. No nausea vomiting or diarrhea. Other review of systems is negative. - Home Medications and Allergies Home Medications: Home Medications Medication Instructions Recorded Confirmed Type Glimepiride [Amaryl] 4 mg PO QAM 03/26/15 04/17/17 History Albuterol Sulfate [Proair HFA] 2 puff INH Q4H PRN 12/23/15 04/17/17 History Aspirin EC Tab 81 mg PO BEDTIME 12/23/15 04/17/17 History Folic Acid Tab 1 mg PO DAILY 12/23/15 04/17/17 History Insulin Glargine [Lantus] 70 unit SUBCUT BEDTIME 12/23/15 04/17/17 History Lansoprazole [Prevacid] 30 mg PO DAILY W/BREAKFAST 12/23/15 04/17/17 History Magnesium Oxide 400 mg PO TID 12/23/15 04/17/17 History Metformin HCl [Glucophage] 1,000 mg PO BID W/MEALS 12/23/15 04/17/17 History Amlodipine Besylate/Benazepril 1 capsule PO QAM 04/17/17 04/17/17 History [Amlodipine-Benazepril 10-40 mg] Biotin 10,000 mcg PO QAM 04/17/17 04/17/17 History Calcium Carbonate/Vitamin D3 1 each PO BID 04/17/17 04/17/17 History [Calcium 600-Vit D3 800 Tablet] Oxycodone HCl/Acetaminophen 1 each PO Q6H PRN 04/17/17 04/17/17 History [Percocet 10-325 mg Tablet] Potassium Chloride [Klor-Con M20] 20 meq PO QAM 04/17/17 04/17/17 History Pregabalin [Lyrica] 75 mg PO TID PRN 04/17/17 04/17/17 History Promethazine Tab [Phenergan Tab] 25 mg PO Q4H PRN 04/17/17 04/17/17 History Tizanidine HCl [Zanaflex] 4 mg PO TID PRN 04/17/17 04/17/17 History hydrALAZINE TAB [Apresoline Tab] 100 mg PO BID 04/17/17 04/17/17 History Allergies/Adverse Reactions: Allergies Allergy/AdvReac Type Severity Reaction Status Date / Time No Known Allergies Allergy Verified 04/17/17 09:22 12 point system: reviewed and no additional remarkable complaints except as stated Medical,Surgical,& Family Hx - Medical History Cardio: History of: CHF, Hypertension Neurology: History of: Migraine No history of: Seizures HEENT: History of: Eye Problem (glasses) No history of: Glaucoma Endocrine: History of: Diabetes Mellitus (IDDM), Diabetes Mellitus (NIDDM), Dyslipidemia No history of: Thyroid Disorder Rheumatology: No history of;: Fibromyalgia Respiratory: History of: Asthma No history of: Obstructive Sleep Apnea Gastrointestinal: History of: GERD, Liver Problems (fatty liver), Polyps, Gastrointestinal Cancer ([id number]) No history of: Hepatitis Musculoskeletal: History of: Back/Neck Problems, Degenerative Disk Disease Hematology: No history of: Blood Transfusion Reaction Reproductive: History of: Ovarian Cysts Other: History of: Cancer (colon) No history of: Anesthesia Reactions - Surgical History Cardiac Surgeries: Patient Denies: Cardiac Catheterization HEENT Surgeries: Patient denies: Eye Surgery, Tonsilectomy & Adenoidectomy Abdominal Surgeries: Surgical HX of: Abdominal Surgery (part of colon removed), Appendectomy, Cholecystectomy, Colonoscopy, Gastric Bypass Surgery (2002), EGD, Hernia Repair Reproductive Surgeries: Surgical HX of;: Hysterectomy Patient denies;: Breast Surgery, Genitourinary Surgery Orthopedic Surgeries: Surgical HX of;: Orthopedic Surgery (left broken tib/fib) - Family History Family History: Reports;: Family Cancer (brother had colon cancer), Family Diabetes (dad and mom), Family Hypertension (father) - Social History Smoking Status: Never smoker Frequency of Alcohol Use: None Type of Drug Use: None Exam - Labs CBC & BMP: 04/18/17 04:13 04/18/17 04:13 Lab Results: I have reviewed the past 24 hour labs Labs: INR 1.1 04/18/17 04:13 Image Studies: U/S and NM PE study reviewed - Constitutional Vitals: Period Temp Pulse Resp BP Sys/Hernandez Pulse Ox Last 24 Hr 97.0 F-98.4 F 70-124 13-26 88-164/48-110 96-100 General appearance: morbidly obese - Eye Eye exam: Present: EOMI - Respiratory Respiratory exam: Present: clear to auscultation bilaterally, accessory muscle use - Cardiovascular Cardiovascular exam: Present: regular rate and rhythm - GI/Abdominal GI/Abdominal exam: Present: normal bowel sounds - Expanded Left Lower Hip exam: Present: swelling, tenderness Upper Leg exam: Present: swelling, tenderness. Absent: ecchymosis, erythema Knee exam: Present: swelling Lower leg exam: Present: swelling. Absent: erythema Ankle exam: Present: swelling. Absent: tenderness Foot/Toe exam: Present: swelling Neuro vascular tendon exam: Absent: motor deficit, sensory deficit Right Lower Lower leg exam: Absent: swelling Foot/Toe exam: Present: normal inspection. Absent: swelling - Neurological Exam Neurological exam: Present: alert, oriented X3 - Psychiatric Psychiatric exam: Present: normal affect, normal mood - Skin Skin exam: Present: normal color, dry
[2017-04-18] MEDS ORDERED: METOPROLOL TARTRATE 5 MG/5 ML VIAL IV ONE (12:43)
[2017-04-18] MEDS: ENOXAPARIN 150 MG/ML SYRINGE SUBCUT SCH (15:15)
--- NOTE | 2017-04-18 19:01 | Nephrology Progress Note ---
Nephrology - PN: Subj Interval history: Patient is resting comfortably. Good urine output. Serum creatinine is better than yesterday with creatinine of 2.5. No shortness of breath. Renal ultrasound done that shows some hypo-echoic changes may suggest medical renal disease. Continue to follow and monitor renal recovery. Exam (PN)-Nephrology - Vital Signs Vital signs: Period Temp Pulse Resp BP Sys/Hernandez Pulse Ox Last 24 Hr 97.0 F-99.4 F 70-130 12-26 88-159/52-86 93-100 - General Appearance General appearance: well-developed, well-nourished EENT: ATNC Neck: supple Respiratory: clear Cardiology: regular rate, regular rhythm Gastrointestinal: normoactive bowel sounds, no tenderness Neurologic: alert and oriented x3 - Lab 04/18/17 04:13 04/18/17 04:13 Most recent lab results ABG pH 7.370 (7.35-7.45) 04/18/17 03:26 ABG pCO2 45.4 MM HG (35-48) 04/18/17 03:26 ABG pO2 85.0 MM HG (80-95) 04/18/17 03:26 ABG HCO3 25.0 MMOL/L (20-26) 04/18/17 03:26 ABG O2 Saturation 95.4 % (95-100) 04/18/17 03:26 Calcium 8.4 MG/DL (8.5-10.1) L 04/18/17 04:13 Magnesium 2.8 MG/DL (1.8-2.4) H 04/18/17 04:13 Assessment and Plan (1) Deep vein thrombosis (DVT) of both lower extremities Problem details: extensive LLE devt on us, no definite PE (unlikely with IVC filter) Status: Acute Current Visit: Yes Qualifiers: Chronicity: acute (2) Hemoptysis Status: Acute Assessment and plan: Patient with DVT. On weight-based Lovenox. Currently on oxygen therapy which sats are stable. Current Visit: Yes (3) History of colon cancer Status: Chronic Assessment and plan: This dates back 20 years ago. Patient has a colostomy bag in place. Current Visit: Yes (4) Hyperkalemia Status: Acute Current Visit: Yes (5) Renal failure Status: Acute Assessment and plan: Appears to be acute on chronic renal failure. Serum creatinine was noted to be 2.0 back in January of this year. The first part of the year serum creatinine was noted to be 1.3. Repeat BMP in a.m. Avoid nephrotoxic agents. Strict I's and O's. Current Visit: Yes Qualifiers: Renal failure chronicity: acute on chronic Chronic kidney disease stage: stage 3 (moderate) (6) Hypertension Status: Chronic Current Visit: No Qualifiers: Hypertension type: essential hypertension Qualified Code(s): I10 - Essential (primary) hypertension
[2017-04-18] MEDS: ASPIRIN EC 81 MG TABLET PO SCH (21:49)
[2017-04-18] MEDS: INSULIN GLARGINE 100 UNIT/ML SUBCUT SCH (21:50)
[2017-04-19] MEDS: SODIUM CHLORIDE 0.9% 1,000 ML IV SCH ×4 (04:16→21:11)
[2017-04-19 04:49] LABS: Basophils % 0.1 % (0.0-0.8); Eosinophils # 0.1 10*3/uL (0.0-0.87); Eosinophils % 0.7 % (0.00-10.9); Hematocrit 29.7 VOL% (35.7-47.0); Hemoglobin 8.8 GM/DL (12.0-16.0); Immature Granulocytes % 0.5 %; Immature Granulocytes Absolute 0.04 #; Lymphocytes # 2.6 10*3/uL (1.4-4.0); Lymphocytes % 29.8 % (21.3-54.2); Mean Corpuscular HGB Conc 29.6 GM/DL (32-36); Mean Corpuscular Hemoglobin 26 PG (27-34); Mean Corpuscular Volume 88.4 FL (87-102); Mean Platelet Volume 10.7 FL (9.6-12.0); Monocytes # 0.6 10*3/uL (0.11-0.8); Monocytes % 6.4 % (1.7-12.7); Neutrophils # 5.5 10*3/uL (1.4-7.4); Neutrophils % 62.5 % (38.7-73.9); Platelet Count 197 T/CUMM (130-400); Red Blood Count 3.36 MC/CUMM (3.8-5.5); Red Cell Distribution Width 15.1 % (9.3-17.3); White Blood Count 8.8 T/CUMM (4-12)
[2017-04-19 05:23] LABS: Calcium 8.3 MG/DL (8.5-10.1); Magnesium 2.5 MG/DL (1.8-2.4); Potassium 4.3 MMOL/L (3.5-5.1)
--- NOTE | 2017-04-19 06:10 | Pulmonology Progress Note ---
Pulmonary - PN: Subj Interval history: This 56-year-old white female has severe bilateral DVT worse on the left side. Having a good bit of pain in the left leg. She has an IVC umbrella that was placed about 20 years ago. Signs and symptoms of a pulmonary embolus with hemoptysis. Unable to do CT PE protocol because of renal insufficiency. Has clear chest x-ray. VQ lung scan is ordered today she still having a good bit of pain in the left leg. It remains quite swollen. Will ask interventional radiology to look at her and see if catheter directed intravenous TPA would be of help. 04/19/2017 appreciate interventional radiology consult. Dr. Crowley does not feel that catheter directed TPA would be helpful in this patient. Her leg is decreasing in size. She does have an IVC filter that may need to be retrieved if we do anything. However since she is improving with Lovenox plans are to continue that. Sounds reasonable to treat with subcu Lovenox for a few weeks and then change to an oral anticoagulant such as Eliquis. Exam (Progress Note) - Constitutional Vitals: Period Temp Pulse Resp BP Sys/Hernandez Pulse Ox Last 24 Hr 97.0 F-99.4 F 93-130 12-27 78-159/48-86 91-100 Exam: Patient's alert oriented. Pulse is now down in the 90s. Vital signs normal. The post react to light. Throat is clear. Neck supple no bruits. Chest is clear equal breath sounds. Heart normal rate and rhythm no murmurs. Abdomen soft nontender no masses. Extremities both legs swollen worse on the left than the right, but the left leg is not as tense as yesterday. Tender calves, but less so. Results - Labs CBC & BMP: 04/19/17 04:23 04/19/17 04:23 Lab Results: I have reviewed the past 24 hour labs Assessment and Plan (1) Suspected pulmonary embolism Status: Acute Assessment and plan: Shortness of breath and hemoptysis in a patient with extensive bilateral DVT. The IVC umbrella was placed over 20 years ago and probably is not doing much to protect her lungs. Needs probably lifelong anticoagulation. She does not have pulmonary hypertension she does not have hypotension. She is a little tachycardic. This is not a massive embolism. I think standard therapy would be indicated. She is on Lovenox at present. Coumadin or 1 of the newer anticoagulants could follow. 04/18/2017 patient is on full dose Lovenox. VQ lung scan is pending. She will need for anticoagulants whether is positive or not but we need to know whether she has had a pulmonary embolus. 04/19/2017 VQ lung scan was low probability. She has not had a pulmonary embolism. Current Visit: Yes (2) Deep vein thrombosis (DVT) of both lower extremities Problem details: extensive LLE devt on us, no definite PE (unlikely with IVC filter) Status: Acute Assessment and plan: Continuing full dose Lovenox. 04/18/2017 will ask interventional radiology to see if catheter directed thrombolytic therapy might be helpful for her left leg. She is still having a good bit of pain 04/19/2017 needs lifelong anticoagulation. May need IVC filter retrieval or TPA infusion if her symptoms get worse. At the present time her leg swelling is decreasing Current Visit: Yes Qualifiers: Chronicity: acute (3) Acute renal injury Status: Acute Assessment and plan: Nephrology is following 04/18/2017 creatinine better, down to 2.5 today 04/19/2017 renal function is improving. Creatinine down to 1.4. Current Visit: Yes
[2017-04-19] MEDS: oxyCODONE/ACETAMINOPHEN 5-325 MG TABLET PO PRN ×3 (06:21→23:19)
[2017-04-19] MEDS ORDERED: NON-FORMULARY MEDICATION (Lansoprazole [Prevacid] 30 MG) PO SCH (08:00)
[2017-04-19] MEDS ORDERED: DEXTROSE 50% 25 GM/50 ML SYRINGE IV PRN (08:30)
[2017-04-19] MEDS: INSULIN LISPRO 100 UNIT/ML SUBCUT SCH ×4 (08:33→21:11)
[2017-04-19] MEDS: PANTOPRAZOLE 40 MG TABLET PO SCH (10:31)
[2017-04-19] MEDS: GLIMEPIRIDE 4 MG TABLET PO SCH (10:31)
[2017-04-19] MEDS: CALCIUM (CARBONATE)/VITAMIN D 600 MG-400 UNIT TABLET PO SCH ×2 (10:31→21:14)
[2017-04-19] MEDS: MAGNESIUM OXIDE 400 MG TABLET PO SCH ×3 (10:32→21:14)
[2017-04-19] MEDS: FOLIC ACID 1 MG TABLET PO SCH (10:32)
[2017-04-19] MEDS: PREGABALIN 75 MG CAPSULE PO PRN (10:32)
--- NOTE | 2017-04-19 10:55 | Hospitalist Progress Note ---
Hospitalist: Subjective Interval history: 56 yo AAF a/w severe bilateral DVT worse with some pain in the legs. She also had signs and symptoms of a pulmonary embolus with hemoptysis, however, we were unable to do CT PE protocol because of renal failure. VQ lung scan was done, but low probability. She has been evaluated by IR, no plans for catheter directed tPA, as she is improving with Lovenox. She reports continued improvement with swelling and pain in the lower extremities, and is comfortable. Exam - Constitutional Vitals: Period Temp Pulse Resp BP Sys/Hernandez Pulse Ox Last 24 Hr 97.5 F-99.4 F 93-130 12-27 78-161/48-104 91-100 Exam: General: No Acute Distress HEENT: Normocephalic, atraumatic, Extra ocular movements intact Neck: Supple, No JVD Chest: Clear to auscultation B/L CV: S1 + S2 audible without murmur, gallop or rub Abd: soft, NT, Non-distended, BS + Ext: Both lower extremities are moderately swollen Skin: No purpura, bruising or rash Rheumatologic: No Joint deformities Neurologic: Strengtg 5/5 all extremities, no gross sensory deficits Results - Labs CBC & BMP: 04/19/17 04:23 04/19/17 04:23 - Impressions Assessment and Plan (1) Suspected pulmonary embolism Status: Acute Assessment and plan: Shortness of breath and hemoptysis in a patient with extensive bilateral DVT, but these are improving. Continue Lovenox for now. Current Visit: Yes (2) Deep vein thrombosis (DVT) of both lower extremities Problem details: extensive DVT B/L LE Status: Acute Assessment and plan: Leg swelling is decreasin, continue full dose Lovenox. (3) Acute Kidney Injury Status: Acute Assessment and plan: This is improving, Cr decreased from 3.6 to 1.4 today. Nephrology is following (4) Diabetes type 2, controlled Status: Chronic Assessment and plan: Controlled on Diabetic diet, sliding scale insulin with Accu-Cheks. Continue Lantus and Humalog. 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 current Visit: Yes (6) History of colon cancer Status: Chronic Current Visit: Yes h/o Colostomy Transfer to floor on a monitored bed from CCU today. Quality Measures - VTE Contraindication to Pharmacological VTE Prophylaxis: Already on Theraputic Agent , No Prophylaxis Needed
--- NOTE | 2017-04-19 13:08 | Nephrology Progress Note ---
Nephrology - PN: Subj Interval history: 04/18/2017Patient is resting comfortably. Good urine output. Serum creatinine is better than yesterday with creatinine of 2.5. No shortness of breath. Renal ultrasound done that is normal. Continue to follow and monitor renal recovery. 04/19/2017. The patient is resting comfortably she has been good urine output serum creatinine is now down to 1.4. Renal ultrasound is reviewed in its is normal. Exam (PN)-Nephrology - Vital Signs Vital signs: Period Temp Pulse Resp BP Sys/Hernandez Pulse Ox Last 24 Hr 97.5 F-99.4 F 93-121 09-18 78-161/48-104 91-100 - General Appearance General appearance: well-developed, well-nourished EENT: ATNC Neck: supple Respiratory: clear Cardiology: regular rate, regular rhythm Gastrointestinal: normoactive bowel sounds, no tenderness, no guarding Neurologic: alert and oriented x3 Musculoskeletal: no clubbing Psychiatric: mood/affect appropriate - Lab 04/19/17 04:23 04/19/17 04:23 Most recent lab results ABG pH 7.370 (7.35-7.45) 04/18/17 03:26 ABG pCO2 45.4 MM HG (35-48) 04/18/17 03:26 ABG pO2 85.0 MM HG (80-95) 04/18/17 03:26 ABG HCO3 25.0 MMOL/L (20-26) 04/18/17 03:26 ABG O2 Saturation 95.4 % (95-100) 04/18/17 03:26 Calcium 8.3 MG/DL (8.5-10.1) L 04/19/17 04:23 Magnesium 2.5 MG/DL (1.8-2.4) H 04/19/17 04:23 Assessment and Plan (1) Deep vein thrombosis (DVT) of both lower extremities Problem details: extensive LLE devt on us, no definite PE (unlikely with IVC filter) Status: Acute Current Visit: Yes Qualifiers: Chronicity: acute (2) Hemoptysis Status: Acute Assessment and plan: Patient with DVT. On weight-based Lovenox. This issue has resolved. Current Visit: Yes (3) History of colon cancer Status: Chronic Assessment and plan: This dates back 20 years ago. Patient has a colostomy bag in place. Current Visit: Yes (4) Hyperkalemia Status: Acute Current Visit: Yes (5) Renal failure Status: Resolved Assessment and plan: More likely acute renal failure. This has resolved. Serum creatinine is noted be 1.4. Urine output is good. No new recommendations will sign off. Please call if needed. Current Visit: Yes Qualifiers: Renal failure chronicity: acute on chronic Chronic kidney disease stage: stage 3 (moderate) (6) Hypertension Status: Chronic Current Visit: No Qualifiers: Hypertension type: essential hypertension Qualified Code(s): I10 - Essential (primary) hypertension
[2017-04-19] MEDS: ENOXAPARIN 150 MG/ML SYRINGE SUBCUT SCH (15:23)
[2017-04-19] MEDS: tiZANidine 4 MG TABLET PO PRN (17:30)
[2017-04-19] MEDS: ASPIRIN EC 81 MG TABLET PO SCH (21:14)
[2017-04-19] MEDS: INSULIN GLARGINE 100 UNIT/ML SUBCUT SCH (21:14)
[2017-04-20] MEDS: SODIUM CHLORIDE 0.9% 1,000 ML IV SCH ×2 (03:05→04:44)
[2017-04-20] MEDS: INSULIN LISPRO 100 UNIT/ML SUBCUT SCH ×4 (07:30→22:35)
[2017-04-20] MEDS: GLIMEPIRIDE 4 MG TABLET PO SCH (08:52)
[2017-04-20] MEDS: CALCIUM (CARBONATE)/VITAMIN D 600 MG-400 UNIT TABLET PO SCH ×2 (08:53→21:19)
[2017-04-20] MEDS: MAGNESIUM OXIDE 400 MG TABLET PO SCH ×3 (08:53→21:19)
[2017-04-20] MEDS: FOLIC ACID 1 MG TABLET PO SCH (08:53)
[2017-04-20] MEDS: PANTOPRAZOLE 40 MG TABLET PO SCH (08:53)
--- NOTE | 2017-04-20 09:36 | Hospitalist Progress Note ---
Assessment and Plan (1) Deep vein thrombosis (DVT) of both lower extremities Problem details: extensive LLE devt on us, no definite PE (unlikely with IVC filter) Status: Acute Assessment and plan: The patient has improved renal function. I am going to increase the dose of Lovenox to 1 mg/kg twice daily. The patient will continue on Lovenox for now and we will investigate her insurance to see if Eliquis can be authorized. Current Visit: Yes Qualifiers: Chronicity: acute (2) History of colon cancer Status: Chronic Current Visit: Yes (3) Acute renal injury Status: Acute Current Visit: Yes Hospitalist: Subjective Interval history: Mrs. Sen is resting quietly in bed. She complains of pain in the left lower extremity though it is better than when she arrived. The patient is receiving once daily Lovenox injections. Renal function has improved and we will start on Eliquis today. Exam - Constitutional Vitals: Period Temp Pulse Resp BP Sys/Hernandez Pulse Ox Last 24 Hr 97.9 F-99.8 F 84-123 17-22 119-161/60-93 93-99 General appearance: mild distress - Respiratory Respiratory exam: Present: clear to auscultation bilaterally - Cardiovascular Cardiovascular exam: Present: regular rate and rhythm - GI/Abdominal GI/Abdominal exam: Present: normal bowel sounds Results - Labs CBC & BMP: 04/19/17 04:23 04/19/17 04:23 Lab Results: I have reviewed the past 24 hour labs Quality Measures - VTE Contraindication to Pharmacological VTE Prophylaxis: Already on Theraputic Agent , No Prophylaxis Needed
[2017-04-20] MEDS: tiZANidine 4 MG TABLET PO PRN ×2 (10:09→21:30)
[2017-04-20] MEDS: ENOXAPARIN 150 MG/ML SYRINGE SUBCUT SCH ×2 (10:10→21:30)
--- NOTE | 2017-04-20 11:00 | Pulmonology Progress Note ---
Pulmonary - PN: Subj Interval history: This is a 56-year-old black female with a history of severe deep venous thrombophlebitis. In the past she had an inferior vena cava filter placed when she had colon surgery in [place] she said that she did not have any clots in her legs at that time. Recently she developed bilateral lower extremity edema. She was found to have deep venous thrombophlebitis. VQ lung scan did not show any pulmonary emboli. CT scan was not done because of renal insufficiency. The patient is on Lovenox. Patient feels like she is better says she does not feel great yet. There was not anything in particular. She does complain because she is at bed rest. Electrolytes are normal. Creatinine is fallen to 1.4 with a BUN of 52. CBC is stable. Labs were been reviewed Medicines have been reviewed Microbiology. No positive cultures Physical exam. Vital signs. See below Psychiatric. Oriented 3 Neurologic. Cranial nerves are intact. Patient moves all 4 extremities. Face symmetrical. No edema of the lips and tongue. Neck. Short and thick. No meningismus. Chest. Clear Heart. Heart sounds are distant I hear no gallop Abdomen is massively obese Extremities. Resolving edema. Lymphatics. No submandibular cervical supraclavicular adenopathy The remainder of the physical exam is negative. Plan. 1. Continue present regimen. Exam (Progress Note) - Constitutional Vitals: Period Temp Pulse Resp BP Sys/Hernandez Pulse Ox Last 24 Hr 97.9 F-99.8 F 84-123 17-20 119-158/60-87 93-97 Results - Labs CBC & BMP: 04/19/17 04:23 04/19/17 04:23
--- NOTE | 2017-04-20 15:46 | Nephrology Progress Note ---
Nephrology - PN: Subj Interval history: She is without complaints today Exam (PN)-Nephrology - Vital Signs Vital signs: Period Temp Pulse Resp BP Sys/Hernandez Pulse Ox Last 24 Hr 96.2 F-99.8 F 84-115 17-19 105-127/61-87 93-96 Exam: ENT: Normal Cardiovascular: Regular rate and rhythm. No murmur rub or gallop Lungs: Clear Extremities: 1-2+ edema - Lab 04/19/17 04:23 04/19/17 04:23 Most recent lab results ABG pH 7.370 (7.35-7.45) 04/18/17 03:26 ABG pCO2 45.4 MM HG (35-48) 04/18/17 03:26 ABG pO2 85.0 MM HG (80-95) 04/18/17 03:26 ABG HCO3 25.0 MMOL/L (20-26) 04/18/17 03:26 ABG O2 Saturation 95.4 % (95-100) 04/18/17 03:26 Calcium 8.3 MG/DL (8.5-10.1) L 04/19/17 04:23 Magnesium 2.5 MG/DL (1.8-2.4) H 04/19/17 04:23 Assessment and Plan (1) Acute renal injury Status: Acute Assessment and plan: Renal function has improved to normal. Current Visit: Yes (2) Deep vein thrombosis (DVT) of both lower extremities Problem details: extensive LLE devt on us, no definite PE (unlikely with IVC filter) Status: Acute Current Visit: Yes Qualifiers: Chronicity: acute
[2017-04-20] MEDS: oxyCODONE/ACETAMINOPHEN 5-325 MG TABLET PO PRN (16:08)
[2017-04-20] MEDS: ASPIRIN EC 81 MG TABLET PO SCH (21:19)
[2017-04-20] MEDS: INSULIN GLARGINE 100 UNIT/ML SUBCUT SCH (21:19)
[2017-04-21] MEDS: oxyCODONE/ACETAMINOPHEN 5-325 MG TABLET PO PRN ×4 (01:16→22:11)
[2017-04-21 02:43] LABS: Basophils % 0.3 % (0.0-0.8); Eosinophils # 0.1 10*3/uL (0.0-0.87); Eosinophils % 1.4 % (0.00-10.9); Hematocrit 26.4 VOL% (35.7-47.0); Hemoglobin 8.1 GM/DL (12.0-16.0); Immature Granulocytes % 1.1 %; Immature Granulocytes Absolute 0.09 #; Lymphocytes # 2.8 10*3/uL (1.4-4.0); Lymphocytes % 35.6 % (21.3-54.2); Mean Corpuscular HGB Conc 30.7 GM/DL (32-36); Mean Corpuscular Hemoglobin 27 PG (27-34); Mean Corpuscular Volume 86.6 FL (87-102); Mean Platelet Volume 10.3 FL (9.6-12.0); Monocytes # 0.6 10*3/uL (0.11-0.8); Monocytes % 7.2 % (1.7-12.7); Neutrophils # 4.3 10*3/uL (1.4-7.4); Neutrophils % 54.4 % (38.7-73.9); Platelet Count 211 T/CUMM (130-400); Red Blood Count 3.05 MC/CUMM (3.8-5.5); White Blood Count 7.8 T/CUMM (4-12)
[2017-04-21 03:06] LABS: PT Patient Result 10.7 SECS
[2017-04-21 03:17] LABS: Albumin 2.6 G/DL (3.4-5.0); Bilirubin,Total 0.9 MG/DL (0.2-1.0); Calcium 8.9 MG/DL (8.5-10.1); Magnesium 2.4 MG/DL (1.8-2.4); Osmolality,Calculated 290.8 MOS/KG (273-304); Potassium 4.2 MMOL/L (3.5-5.1); Total Protein 6.1 G/DL (6.4-8.3)
[2017-04-21] MEDS: INSULIN LISPRO 100 UNIT/ML SUBCUT SCH ×4 (07:33→21:10)
--- NOTE | 2017-04-21 09:02 | Hospitalist Progress Note ---
Assessment and Plan (1) Deep vein thrombosis (DVT) of both lower extremities Problem details: extensive LLE devt on us, no definite PE (unlikely with IVC filter) Status: Acute Assessment and plan: The patient has improved renal function. I am have increased the dose of Lovenox to 1 mg/kg twice daily. The patient will continue on Lovenox for now and we will investigate her insurance to see if Eliquis can be authorized. The patient might be able to go home Saturday if Eliquis and home health are arranged. Current Visit: Yes Qualifiers: Chronicity: acute (2) History of colon cancer Status: Chronic Current Visit: Yes (3) Acute renal injury Status: Acute Current Visit: Yes Hospitalist: Subjective Interval history: The patient complains of pain behind the left knee. The patient is anxious to begin activity. The patient has no shortness of breath today. The patient has continued on Lovenox subcu twice daily. Exam - Constitutional Vitals: Period Temp Pulse Resp BP Sys/Hernandez Pulse Ox Last 24 Hr 96.2 F-98.7 F 77-100 16-19 105-162/67-90 91-98 General appearance: mild distress - Respiratory Respiratory exam: Present: clear to auscultation bilaterally - Cardiovascular Cardiovascular exam: Present: regular rate and rhythm - GI/Abdominal GI/Abdominal exam: Present: normal bowel sounds Results - Labs CBC & BMP: 04/21/17 02:13 04/21/17 02:13 Lab Results: I have reviewed the past 24 hour labs Quality Measures - VTE Contraindication to Pharmacological VTE Prophylaxis: Already on Theraputic Agent , No Prophylaxis Needed
[2017-04-21] MEDS: MAGNESIUM OXIDE 400 MG TABLET PO SCH ×3 (09:23→21:18)
[2017-04-21] MEDS: FOLIC ACID 1 MG TABLET PO SCH (09:23)
[2017-04-21] MEDS: GLIMEPIRIDE 4 MG TABLET PO SCH (09:23)
[2017-04-21] MEDS: CALCIUM (CARBONATE)/VITAMIN D 600 MG-400 UNIT TABLET PO SCH ×2 (09:23→21:10)
[2017-04-21] MEDS: PANTOPRAZOLE 40 MG TABLET PO SCH (09:23)
--- NOTE | 2017-04-21 09:48 | Pulmonology Progress Note ---
Pulmonary - PN: Subj Interval history: This is a 56-year-old black female with a history of severe deep venous thrombophlebitis. In the past she had an inferior vena cava filter placed when she had colon surgery in [place] she said that she did not have any clots in her legs at that time. Recently she developed bilateral lower extremity edema. She was found to have deep venous thrombophlebitis. VQ lung scan did not show any pulmonary emboli. CT scan was not done because of renal insufficiency. The patient is on Lovenox. Patient feels like she is better says she does not feel great yet. There was not anything in particular. She does complain because she is at bed rest. Electrolytes are normal. Creatinine is fallen to 1.4 with a BUN of 52. CBC is stable. Labs were been reviewed Medicines have been reviewed Microbiology. No positive cultures 04/21/2017. This patient is stable and had an uneventful night. She says she is tired. Electrolytes are normal. Creatinine is gradually dropped from 3.60- 1.0 with a BUN of 27. H&H is 8.1/26.4. White count 7800 with a normal differential and platelets are 211,000. Liver function tests are normal. Protein and albumin low at 6.1 and 2.6 respectively Physical exam. Vital signs. See below Psychiatric. Oriented 3 Neurologic. Cranial nerves are intact. Patient moves all 4 extremities. Face symmetrical. No edema of the lips and tongue. Neck. Short and thick. No meningismus. Chest. Clear Heart. Heart sounds are distant I hear no gallop Abdomen is massively obese Extremities. Resolving edema. Lymphatics. No submandibular cervical supraclavicular adenopathy The remainder of the physical exam is negative. Plan. 04/20/2017 1. Continue present regimen. 04/21/2017. 1. See today's note above. 2. No changes were made in this patient's regimen Exam (Progress Note) - Constitutional Vitals: Period Temp Pulse Resp BP Sys/Hernandez Pulse Ox Last 24 Hr 96.2 F-98.7 F 77-100 16-19 105-162/67-90 91-98 Results - Labs CBC & BMP: 04/21/17 02:13 04/21/17 02:13
[2017-04-21] MEDS: ENOXAPARIN 150 MG/ML SYRINGE SUBCUT SCH ×2 (11:24→22:33)
[2017-04-21] MEDS: tiZANidine 4 MG TABLET PO PRN (20:10)
[2017-04-21] MEDS: DOCUSATE SODIUM 100 MG CAPSULE PO PRN (21:10)
[2017-04-21] MEDS: INSULIN GLARGINE 100 UNIT/ML SUBCUT SCH (21:10)
[2017-04-21] MEDS: ASPIRIN EC 81 MG TABLET PO SCH (21:10)
[2017-04-22] MEDS: PREGABALIN 75 MG CAPSULE PO PRN (01:39)
[2017-04-22] MEDS: oxyCODONE/ACETAMINOPHEN 5-325 MG TABLET PO PRN ×3 (05:39→20:48)
--- NOTE | 2017-04-22 06:47 | Pain Management Consult Note ---
Assessment and Plan (1) Chronic pain syndrome Status: Acute Assessment and plan: Patient reports that the chronic pain syndrome and acute exacerbation of pain in the left thigh is currently well-controlled on current medications. I will continue to monitor along with the other consultants involved in her care Current Visit: Yes History of Present Illness Chief complaint: Left leg pain History of present illness: Ms. Villafuerte is a 56 year old female Patient with suspected DVT and chronic pain pain is mainly in the lower back and left lower extremity. Patient reports that pain medication started yesterday have not helped and pain seems to be better controlled at this time patient is satisfied with current pain medications. Home Medications Medication Instructions Recorded Confirmed Type Glimepiride [Amaryl] 4 mg PO QAM 03/26/15 04/17/17 History Albuterol Sulfate [Proair HFA] 2 puff INH Q4H PRN 12/23/15 04/17/17 History Aspirin EC Tab 81 mg PO BEDTIME 12/23/15 04/17/17 History Folic Acid Tab 1 mg PO DAILY 12/23/15 04/17/17 History Insulin Glargine [Lantus] 70 unit SUBCUT BEDTIME 12/23/15 04/17/17 History Lansoprazole [Prevacid] 30 mg PO DAILY W/BREAKFAST 12/23/15 04/17/17 History Magnesium Oxide 400 mg PO TID 12/23/15 04/17/17 History Metformin HCl [Glucophage] 1,000 mg PO BID W/MEALS 12/23/15 04/17/17 History Amlodipine Besylate/Benazepril 1 capsule PO QAM 04/17/17 04/17/17 History [Amlodipine-Benazepril 10-40 mg] Biotin 10,000 mcg PO QAM 04/17/17 04/17/17 History Calcium Carbonate/Vitamin D3 1 each PO BID 04/17/17 04/17/17 History [Calcium 600-Vit D3 800 Tablet] Oxycodone HCl/Acetaminophen 1 each PO Q6H PRN 04/17/17 04/17/17 History [Percocet 10-325 mg Tablet] Potassium Chloride [Klor-Con M20] 20 meq PO QAM 04/17/17 04/17/17 History Pregabalin [Lyrica] 75 mg PO TID PRN 04/17/17 04/17/17 History Promethazine Tab [Phenergan Tab] 25 mg PO Q4H PRN 04/17/17 04/17/17 History Tizanidine HCl [Zanaflex] 4 mg PO TID PRN 04/17/17 04/17/17 History hydrALAZINE TAB [Apresoline Tab] 100 mg PO BID 04/17/17 04/17/17 History Allergies Allergy/AdvReac Type Severity Reaction Status Date / Time No Known Allergies Allergy Verified 04/17/17 09:22 Medical,Surgical,& Family Hx - Medical History Cardio: History of: CHF, Hypertension Neurology: History of: Migraine No history of: Seizures HEENT: History of: Eye Problem (glasses) No history of: Glaucoma Endocrine: History of: Diabetes Mellitus (IDDM), Diabetes Mellitus (NIDDM), Dyslipidemia No history of: Thyroid Disorder Rheumatology: No history of;: Fibromyalgia Respiratory: History of: Asthma No history of: Obstructive Sleep Apnea Gastrointestinal: History of: GERD, Liver Problems (fatty liver), Polyps, Gastrointestinal Cancer ([id number]) No history of: Hepatitis Musculoskeletal: History of: Back/Neck Problems, Degenerative Disk Disease Hematology: No history of: Blood Transfusion Reaction Reproductive: History of: Ovarian Cysts Other: History of: Cancer (colon) No history of: Anesthesia Reactions - Surgical History Cardiac Surgeries: Patient Denies: Cardiac Catheterization HEENT Surgeries: Patient denies: Eye Surgery, Tonsilectomy & Adenoidectomy Abdominal Surgeries: Surgical HX of: Abdominal Surgery (part of colon removed), Appendectomy, Cholecystectomy, Colonoscopy, Gastric Bypass Surgery (2002), EGD, Hernia Repair Reproductive Surgeries: Surgical HX of;: Hysterectomy Patient denies;: Breast Surgery, Genitourinary Surgery Orthopedic Surgeries: Surgical HX of;: Orthopedic Surgery (left broken tib/fib) - Family History Family History: Reports;: Family Cancer (brother had colon cancer), Family Diabetes (dad and mom), Family Hypertension (father) - Social History Smoking Status: Never smoker Frequency of Alcohol Use: None Type of Drug Use: None Quality Measures - VTE Contraindication to Pharmacological VTE Prophylaxis: Already on Theraputic Agent , No Prophylaxis Needed 12 point system: reviewed and no additional remarkable complaints except as stated Exam - Constitutional Vitals: Period Temp Pulse Resp BP Sys/Hernandez Pulse Ox Last 24 Hr 97.5 F-99.2 F 99-110 16-19 117-178/71-95 91-98 General appearance: no acute distress - Head Head exam: Present: normal inspection - Eye Eye exam: Present: EOMI Pupils: Present: ARIAN - ENT ENT exam: Present: normal exam Ear exam: Present: intact Mouth exam: Present: normal external inspection - Neck Neck exam: Present: normal inspection - Respiratory Respiratory exam: Present: clear to auscultation bilaterally - Cardiovascular Cardiovascular exam: Present: RRR - GI/Abdominal GI/Abdominal exam: Present: tenderness (colostomy) - Extremities Exam Extremities exam: Present: edema - Back Exam Back exam: Present: vertebral tenderness - Neurological Exam Neurological exam: Present: abnormal gait - Skin Skin exam: Present: normal color Results - Labs CBC & BMP: 04/21/17 02:13 04/21/17 02:13 Lab Results: I have reviewed the past 24 hour labs
[2017-04-22] MEDS: INSULIN LISPRO 100 UNIT/ML SUBCUT SCH ×4 (07:45→20:52)
[2017-04-22] MEDS: tiZANidine 4 MG TABLET PO PRN ×2 (09:00→16:18)
[2017-04-22] MEDS: ENOXAPARIN 150 MG/ML SYRINGE SUBCUT SCH (09:00)
[2017-04-22] MEDS: CALCIUM (CARBONATE)/VITAMIN D 600 MG-400 UNIT TABLET PO SCH ×2 (09:00→20:49)
[2017-04-22] MEDS: MAGNESIUM OXIDE 400 MG TABLET PO SCH ×3 (09:00→20:49)
[2017-04-22] MEDS: FOLIC ACID 1 MG TABLET PO SCH (09:00)
[2017-04-22] MEDS: GLIMEPIRIDE 4 MG TABLET PO SCH (09:00)
[2017-04-22] MEDS: PANTOPRAZOLE 40 MG TABLET PO SCH (09:00)
--- NOTE | 2017-04-22 09:11 | Pulmonology Progress Note ---
Pulmonary - PN: Subj Interval history: This 56-year-old white female has severe bilateral DVT worse on the left side. Having a good bit of pain in the left leg. She has an IVC umbrella that was placed about 20 years ago. Signs and symptoms of a pulmonary embolus with hemoptysis. Unable to do CT PE protocol because of renal insufficiency. Has clear chest x-ray. VQ lung scan is ordered today she still having a good bit of pain in the left leg. It remains quite swollen. Will ask interventional radiology to look at her and see if catheter directed intravenous TPA would be of help. 04/19/2017 appreciate interventional radiology consult. Dr. Crowley does not feel that catheter directed TPA would be helpful in this patient. Her leg is decreasing in size. She does have an IVC filter that may need to be retrieved if we do anything. However since she is improving with Lovenox plans are to continue that. Sounds reasonable to treat with subcu Lovenox for a few weeks and then change to an oral anticoagulant such as Eliquis. 04/22/2017 patient's leg pain is better. She still has a good bit of swelling. I expect when she is up more she is going to have a good bit more pain and swelling in that left leg. At any rate I certainly agree with oral anticoagulants with plans for discharge. She would do better on 1 of the newer ones rather than Coumadin since it would take another week or so to get that regulated. Exam (Progress Note) - Constitutional Vitals: Period Temp Pulse Resp BP Sys/Hernandez Pulse Ox Last 24 Hr 97.5 F-99.2 F 101-110 16-19 117-178/71-95 93-98 Exam: Patient's alert oriented. Pulse is now down in the 90s. Vital signs normal. The post react to light. Throat is clear. Neck supple no bruits. Chest is clear equal breath sounds. Heart normal rate and rhythm no murmurs. Abdomen soft nontender no masses. Extremities both legs swollen worse on the left than the right. Calves only minimally tender Results - Labs CBC & BMP: 04/21/17 02:13 04/21/17 02:13 Lab Results: I have reviewed the past 24 hour labs Assessment and Plan (1) Suspected pulmonary embolism Status: Acute Assessment and plan: Shortness of breath and hemoptysis in a patient with extensive bilateral DVT. The IVC umbrella was placed over 20 years ago and probably is not doing much to protect her lungs. Needs probably lifelong anticoagulation. She does not have pulmonary hypertension she does not have hypotension. She is a little tachycardic. This is not a massive embolism. I think standard therapy would be indicated. She is on Lovenox at present. Coumadin or 1 of the newer anticoagulants could follow. 04/18/2017 patient is on full dose Lovenox. VQ lung scan is pending. She will need for anticoagulants whether is positive or not but we need to know whether she has had a pulmonary embolus. 04/19/2017 VQ lung scan was low probability. She has not had a pulmonary embolism. 04/22/17 VQ lung scan was negative making a pulmonary embolism very unlikely. Current Visit: Yes (2) Deep vein thrombosis (DVT) of both lower extremities Problem details: extensive LLE devt on us, no definite PE (unlikely with IVC filter) Status: Acute Assessment and plan: Continuing full dose Lovenox. 04/18/2017 will ask interventional radiology to see if catheter directed thrombolytic therapy might be helpful for her left leg. She is still having a good bit of pain 04/19/2017 needs lifelong anticoagulation. May need IVC filter retrieval or TPA infusion if her symptoms get worse. At the present time her leg swelling is decreasing 04/22/2017 lifelong anticoagulants. She still may need some further procedures done after we see how she does ambulating. Current Visit: Yes Qualifiers: Chronicity: acute (3) Acute renal injury Status: Acute Assessment and plan: Nephrology is following 04/18/2017 creatinine better, down to 2.5 today 04/19/2017 renal function is improving. Creatinine down to 1.4. 04/22/2017 renal function returned to normal. Wonder if she had any renal vein thrombosis. Current Visit: Yes
--- NOTE | 2017-04-22 18:34 | Hospitalist Progress Note ---
Hospitalist: Subjective Interval history: Patient still has some pain in her lower extremities especially on trying to walk Exam - Constitutional Vitals: Period Temp Pulse Resp BP Sys/Hernandez Pulse Ox Last 24 Hr 97.5 F-99.2 F 101-106 16- 117-178/71-82 93-97 Exam: General: No Acute Distress HEENT: Normocephalic, atraumatic, Extra ocular movements intact Neck: Supple, No JVD Chest: Clear to auscultation B/L CV: S1 + S2 audible without murmur, gallop or rub Abd: soft, NT, Non-distended, BS + Ext: Both lower extremities are moderately swollen Skin: No purpura, bruising or rash Rheumatologic: No Joint deformities Neurologic: Strengtg 5/5 all extremities, no gross sensory deficits Results - Labs CBC & BMP: 04/21/17 02:13 04/21/17 02:13 - Impressions (1) Deep vein thrombosis (DVT) of both lower extremities Status: Acute She has been started on Eliquis 10 mg twice daily for 1 week then was switched to 5 mg twice daily. She may need to go to swing bed to improve her gaiting and balance. Quality Measures - VTE Contraindication to Pharmacological VTE Prophylaxis: Already on Theraputic Agent , No Prophylaxis Needed
[2017-04-22] MEDS ORDERED: diphenhydrAMINE CAP 25 MG CAPSULE PO PRN (19:53)
[2017-04-22] MEDS: APIXABAN 5 MG TABLET PO SCH (20:49)
[2017-04-22] MEDS: ASPIRIN EC 81 MG TABLET PO SCH (20:49)
[2017-04-22] MEDS: INSULIN GLARGINE 100 UNIT/ML SUBCUT SCH (20:49)
[2017-04-23] MEDS: PREGABALIN 75 MG CAPSULE PO PRN ×3 (00:15→21:21)
[2017-04-23] MEDS: tiZANidine 4 MG TABLET PO PRN ×2 (00:15→12:32)
[2017-04-23] MEDS: oxyCODONE/ACETAMINOPHEN 5-325 MG TABLET PO PRN ×3 (04:36→17:41)
--- NOTE | 2017-04-23 05:38 | Pain Management Progress Note ---
Assessment and Plan (1) Chronic pain syndrome Status: Acute Assessment and plan: Patient reports that the chronic pain syndrome and acute exacerbation of pain in the left thigh is currently well-controlled on current medications. I will continue to monitor along with the other consultants involved in her care 04/23 agree with current plan of care and possible transfer to swing bed unit Current Visit: Yes Pain - Subjective Interval history: Patient still complaining of significant pain in the left lower extremity however she reports that the pain medications to help a little bit with the pain. Patient is possibly going to swing bed unit for treatment and agree with this plan of care Exam - Constitutional Vitals: Period Temp Pulse Resp BP Sys/Hernandez Pulse Ox Last 24 Hr 98.3 F-99.2 F 95-108 18-97 138-147/73-89 93-97 General appearance: mild distress - Head Head exam: Present: normal inspection - Eye Eye exam: Present: EOMI Pupils: Present: ARIAN - ENT ENT exam: Present: normal exam Ear exam: Present: intact Mouth exam: Present: normal external inspection - Neck Neck exam: Present: normal inspection - Respiratory Respiratory exam: Present: clear to auscultation bilaterally - Cardiovascular Cardiovascular exam: Present: RRR - GI/Abdominal GI/Abdominal exam: Present: other (colostomy) - Extremities Exam Extremities exam: Present: edema, other (tender in left thigh area ) - Back Exam Back exam: Present: vertebral tenderness - Neurological Exam Neurological exam: Present: abnormal gait - Skin Skin exam: Present: normal color Results - Labs CBC & BMP: 04/21/17 02:13 04/21/17 02:13 Lab Results: I have reviewed the past 24 hour labs Quality Measures - VTE Contraindication to Pharmacological VTE Prophylaxis: Already on Theraputic Agent , No Prophylaxis Needed
[2017-04-23] MEDS: INSULIN LISPRO 100 UNIT/ML SUBCUT SCH ×4 (08:09→20:17)
--- NOTE | 2017-04-23 08:32 | Pulmonology Progress Note ---
Pulmonary - PN: Subj Interval history: This 56-year-old white female has severe bilateral DVT worse on the left side. Having a good bit of pain in the left leg. She has an IVC umbrella that was placed about 20 years ago. Signs and symptoms of a pulmonary embolus with hemoptysis. Unable to do CT PE protocol because of renal insufficiency. Has clear chest x-ray. VQ lung scan is ordered today she still having a good bit of pain in the left leg. It remains quite swollen. Will ask interventional radiology to look at her and see if catheter directed intravenous TPA would be of help. 04/19/2017 appreciate interventional radiology consult. Dr. Crowley does not feel that catheter directed TPA would be helpful in this patient. Her leg is decreasing in size. She does have an IVC filter that may need to be retrieved if we do anything. However since she is improving with Lovenox plans are to continue that. Sounds reasonable to treat with subcu Lovenox for a few weeks and then change to an oral anticoagulant such as Eliquis. 04/22/2017 patient's leg pain is better. She still has a good bit of swelling. I expect when she is up more she is going to have a good bit more pain and swelling in that left leg. At any rate I certainly agree with oral anticoagulants with plans for discharge. She would do better on 1 of the newer ones rather than Coumadin since it would take another week or so to get that regulated. 04/23/2017 patient is to begin Eliquis. Agree with that plan. She will follow- up with Dr. Suarez who is her primary doctor. May need some time at swing bed. From pulmonary standpoint, I will sign off. Please call if needed further. Exam (Progress Note) - Constitutional Vitals: Period Temp Pulse Resp BP Sys/Hernandez Pulse Ox Last 24 Hr 98.2 F-99.2 F 91-108 18-97 138-159/73-89 93-98 Exam: Patient's alert oriented. Pulse is now down in the 90s. Vital signs normal. The post react to light. Throat is clear. Neck supple no bruits. Chest is clear equal breath sounds. Heart normal rate and rhythm no murmurs. Abdomen soft nontender no masses. Extremities both legs swollen worse on the left than the right. Calves only minimally tender Results - Labs CBC & BMP: 04/21/17 02:13 04/21/17 02:13 Lab Results: I have reviewed the past 24 hour labs Assessment and Plan (1) Suspected pulmonary embolism Status: Ruled-out Assessment and plan: Shortness of breath and hemoptysis in a patient with extensive bilateral DVT. The IVC umbrella was placed over 20 years ago and probably is not doing much to protect her lungs. Needs probably lifelong anticoagulation. She does not have pulmonary hypertension she does not have hypotension. She is a little tachycardic. This is not a massive embolism. I think standard therapy would be indicated. She is on Lovenox at present. Coumadin or 1 of the newer anticoagulants could follow. 04/18/2017 patient is on full dose Lovenox. VQ lung scan is pending. She will need for anticoagulants whether is positive or not but we need to know whether she has had a pulmonary embolus. 04/19/2017 VQ lung scan was low probability. She has not had a pulmonary embolism. 04/22/17 VQ lung scan was negative making a pulmonary embolism very unlikely. Current Visit: Yes (2) Deep vein thrombosis (DVT) of both lower extremities Problem details: extensive LLE devt on us, no definite PE (unlikely with IVC filter) Status: Acute Assessment and plan: Continuing full dose Lovenox. 04/18/2017 will ask interventional radiology to see if catheter directed thrombolytic therapy might be helpful for her left leg. She is still having a good bit of pain 04/19/2017 needs lifelong anticoagulation. May need IVC filter retrieval or TPA infusion if her symptoms get worse. At the present time her leg swelling is decreasing 04/22/2017 lifelong anticoagulants. She still may need some further procedures done after we see how she does ambulating. 04/23/2017 lifelong anticoagulants with Eliquis. Current Visit: Yes Qualifiers: Chronicity: acute (3) Acute renal injury Status: Acute Assessment and plan: Nephrology is following 04/18/2017 creatinine better, down to 2.5 today 04/19/2017 renal function is improving. Creatinine down to 1.4. 04/22/2017 renal function returned to normal. Wonder if she had any renal vein thrombosis. Current Visit: Yes
[2017-04-23] MEDS: CALCIUM (CARBONATE)/VITAMIN D 600 MG-400 UNIT TABLET PO SCH ×2 (09:12→20:24)
[2017-04-23] MEDS: MAGNESIUM OXIDE 400 MG TABLET PO SCH ×3 (09:13→20:24)
[2017-04-23] MEDS: FOLIC ACID 1 MG TABLET PO SCH (09:13)
[2017-04-23] MEDS: PANTOPRAZOLE 40 MG TABLET PO SCH (09:13)
[2017-04-23] MEDS: APIXABAN 5 MG TABLET PO SCH ×2 (09:13→20:24)
[2017-04-23] MEDS: GLIMEPIRIDE 4 MG TABLET PO SCH (09:28)
[2017-04-23] MEDS: INSULIN GLARGINE 100 UNIT/ML SUBCUT SCH (20:17)
[2017-04-23] MEDS: ASPIRIN EC 81 MG TABLET PO SCH (20:24)
[2017-04-24] MEDS: oxyCODONE/ACETAMINOPHEN 5-325 MG TABLET PO PRN ×3 (04:40→17:09)
--- NOTE | 2017-04-24 05:46 | Pain Management Progress Note ---
Assessment and Plan (1) Chronic pain syndrome Status: Acute Assessment and plan: Patient reports that the chronic pain syndrome and acute exacerbation of pain in the left thigh is currently well-controlled on current medications. I will continue to monitor along with the other consultants involved in her care 04/23 agree with current plan of care and possible transfer to swing bed unit 04/24 continue current medications for pain until placement of swing bed Current Visit: Yes Pain - Subjective Interval history: Patient reports that the pain in the left thigh has been better in the last 24 hours. Patient is awaiting placement of possible swing bed at this time Exam - Constitutional Vitals: Period Temp Pulse Resp BP Sys/Hernandez Pulse Ox Last 24 Hr 97.5 F-98.2 F 91-113 18-20 125-159/65-87 95-98 General appearance: no acute distress - Head Head exam: Present: normal inspection - ENT ENT exam: Present: normal exam Ear exam: Present: intact Mouth exam: Present: normal external inspection - Neck Neck exam: Present: normal inspection - Respiratory Respiratory exam: Present: clear to auscultation bilaterally - Cardiovascular Cardiovascular exam: Present: RRR - GI/Abdominal GI/Abdominal exam: Present: normal bowel sounds (Colostomy) - Extremities Exam Extremities exam: Present: other (Left thigh area is tender but the swelling is improving) - Back Exam Back exam: Present: vertebral tenderness - Neurological Exam Neurological exam: Present: abnormal gait - Skin Skin exam: Present: normal color Results - Labs CBC & BMP: 04/21/17 02:13 04/21/17 02:13 Lab Results: I have reviewed the past 24 hour labs Quality Measures - VTE Contraindication to Pharmacological VTE Prophylaxis: Already on Theraputic Agent , No Prophylaxis Needed
[2017-04-24] MEDS: INSULIN LISPRO 100 UNIT/ML SUBCUT SCH ×4 (08:29→21:12)
[2017-04-24] MEDS: APIXABAN 5 MG TABLET PO SCH ×2 (09:24→21:11)
[2017-04-24] MEDS: FOLIC ACID 1 MG TABLET PO SCH (09:25)
[2017-04-24] MEDS: MAGNESIUM OXIDE 400 MG TABLET PO SCH ×3 (09:25→21:11)
[2017-04-24] MEDS: GLIMEPIRIDE 4 MG TABLET PO SCH (09:25)
[2017-04-24] MEDS: PANTOPRAZOLE 40 MG TABLET PO SCH (09:25)
[2017-04-24] MEDS: CALCIUM (CARBONATE)/VITAMIN D 600 MG-400 UNIT TABLET PO SCH ×2 (09:26→21:11)
[2017-04-24] MEDS: tiZANidine 4 MG TABLET PO PRN (12:24)
--- NOTE | 2017-04-24 13:47 | Hospitalist Progress Note ---
Assessment and Plan (1) Deep vein thrombosis (DVT) of both lower extremities Problem details: extensive LLE devt on us, no definite PE (unlikely with IVC filter) Status: Acute Assessment and plan: The patient has improved renal function. I am have increased the dose of Lovenox to 1 mg/kg twice daily. The patient will continue on Lovenox for now and we will investigate her insurance to see if Eliquis can be authorized. The patient might be able to go home Saturday if Eliquis and home health are arranged. Current Visit: Yes Qualifiers: Chronicity: acute (2) History of colon cancer Status: Chronic Current Visit: Yes (3) Acute renal injury Status: Acute Current Visit: Yes Hospitalist: Subjective Interval history: The patient is up out of bed and transferring to the chair by herself. The patient is more cheerful today. The patient continues to have left leg pain but is better than yesterday. We discussed her need for further strengthening prior to discharge home and I coordinate care with the patient's spring encaser concerning the possibility of's swing bed evaluation Exam - Constitutional Vitals: Period Temp Pulse Resp BP Sys/Hernandez Pulse Ox Last 24 Hr 96.9 F-98.2 F 96-114 18-20 125-158/65-87 92-97 Results - Labs CBC & BMP: 04/21/17 02:13 04/21/17 02:13 Quality Measures - VTE Contraindication to Pharmacological VTE Prophylaxis: Already on Theraputic Agent , No Prophylaxis Needed Specialty Discharge - Follow Up or Referrals
[2017-04-24] MEDS: PREGABALIN 75 MG CAPSULE PO PRN ×2 (17:12→21:15)
[2017-04-24] MEDS: ASPIRIN EC 81 MG TABLET PO SCH (21:11)
[2017-04-24] MEDS: INSULIN GLARGINE 100 UNIT/ML SUBCUT SCH (21:11)
[2017-04-25] MEDS: oxyCODONE/ACETAMINOPHEN 5-325 MG TABLET PO PRN ×3 (05:26→18:59)
[2017-04-25] MEDS: tiZANidine 4 MG TABLET PO PRN ×2 (05:27→22:05)
--- NOTE | 2017-04-25 05:49 | Pain Management Progress Note ---
Assessment and Plan (1) Chronic pain syndrome Status: Acute Assessment and plan: Patient reports that the chronic pain syndrome and acute exacerbation of pain in the left thigh is currently well-controlled on current medications. I will continue to monitor along with the other consultants involved in her care 04/23 agree with current plan of care and possible transfer to swing bed unit 04/24 continue current medications for pain until placement of swing bed 04/25 recommend to continue current medications for pain Current Visit: Yes Pain - Subjective Interval history: Patient is stable from the pain management standpoint and is awaiting discharge to home Exam - Constitutional Vitals: Period Temp Pulse Resp BP Sys/Hernandez Pulse Ox Last 24 Hr 96.9 F-98.6 F 90-114 18-20 129-158/74-87 92-100 General appearance: no acute distress - Head Head exam: Present: normal inspection - Eye Eye exam: Present: EOMI Pupils: Present: ARIAN - ENT ENT exam: Present: normal exam Ear exam: Present: intact Mouth exam: Present: normal external inspection - Neck Neck exam: Present: normal inspection, trachea midline - Cardiovascular Cardiovascular exam: Present: RRR - GI/Abdominal GI/Abdominal exam: Present: normal bowel sounds - Extremities Exam Extremities exam: Present: other (Left thigh is tender to palpation) - Back Exam Back exam: Present: vertebral tenderness - Neurological Exam Neurological exam: Present: abnormal gait Results - Labs CBC & BMP: 04/21/17 02:13 04/21/17 02:13 Lab Results: I have reviewed the past 24 hour labs Quality Measures - VTE Contraindication to Pharmacological VTE Prophylaxis: Already on Theraputic Agent , No Prophylaxis Needed Specialty Discharge - Follow Up or Referrals
[2017-04-25] MEDS: INSULIN LISPRO 100 UNIT/ML SUBCUT SCH ×4 (09:37→21:56)
[2017-04-25] MEDS: GLIMEPIRIDE 4 MG TABLET PO SCH (09:45)
[2017-04-25] MEDS: PANTOPRAZOLE 40 MG TABLET PO SCH (09:45)
[2017-04-25] MEDS: DOCUSATE SODIUM 100 MG CAPSULE PO PRN (09:45)
[2017-04-25] MEDS: FOLIC ACID 1 MG TABLET PO SCH (09:45)
[2017-04-25] MEDS: CALCIUM (CARBONATE)/VITAMIN D 600 MG-400 UNIT TABLET PO SCH ×2 (09:46→21:24)
[2017-04-25] MEDS: APIXABAN 5 MG TABLET PO SCH ×2 (09:46→21:25)
[2017-04-25] MEDS: MAGNESIUM OXIDE 400 MG TABLET PO SCH ×3 (09:47→21:24)
[2017-04-25] MEDS: PREGABALIN 75 MG CAPSULE PO PRN (18:59)
--- NOTE | 2017-04-25 20:28 | Hospitalist Progress Note ---
Hospitalist: Subjective Interval history: Leg pain is better today Exam - Constitutional Vitals: Period Temp Pulse Resp BP Sys/Hernandez Pulse Ox Last 24 Hr 96.4 F-98.6 F 85-108 17-20 106-151/65-90 95-98 Exam: General: No Acute Distress HEENT: Normocephalic, atraumatic, Extra ocular movements intact Neck: Supple, No JVD Chest: Clear to auscultation B/L CV: S1 + S2 audible without murmur, gallop or rub Abd: soft, NT, Non-distended, BS + Ext: Both lower extremities are moderately swollen Skin: No purpura, bruising or rash Rheumatologic: No Joint deformities Neurologic: Strengtg 5/5 all extremities, no gross sensory deficits Results - Labs CBC & BMP: 04/21/17 02:13 04/21/17 02:13 - Impressions Impressions (1) Deep vein thrombosis (DVT) of both lower extremities Status: Acute She has been started on Eliquis 10 mg twice daily for 1 week then was switched to 5 mg twice daily. She may need to go to swing bed to improve her gaiting and balance. Her worker is arranging DME and home health is physical therapy and nurse aide to patient's insurance issue swing bed was not possible to arrange. She is agreeable to go home with home health in the morning. Quality Measures - VTE Contraindication to Pharmacological VTE Prophylaxis: Already on Theraputic Agent , No Prophylaxis Needed Specialty Discharge - Follow Up or Referrals
[2017-04-25] MEDS: ASPIRIN EC 81 MG TABLET PO SCH (21:23)
[2017-04-25] MEDS: INSULIN GLARGINE 100 UNIT/ML SUBCUT SCH (21:24)
[2017-04-26] MEDS: tiZANidine 4 MG TABLET PO PRN (06:19)
--- NOTE | 2017-04-26 06:43 | Pain Management Progress Note ---
Assessment and Plan (1) Chronic pain syndrome Status: Acute Assessment and plan: Patient reports that the chronic pain syndrome and acute exacerbation of pain in the left thigh is currently well-controlled on current medications. I will continue to monitor along with the other consultants involved in her care 04/23 agree with current plan of care and possible transfer to swing bed unit 04/24 continue current medications for pain until placement of swing bed 04/25 recommend to continue current medications for pain 04/26 keep appointment with pain clinic Current Visit: Yes Pain - Subjective Interval history: Patient seems to be adequately controlled at this time and patient is likely going home today patient keep scheduled appointment with pain clinic Exam - Constitutional Vitals: Period Temp Pulse Resp BP Sys/Hernandez Pulse Ox Last 24 Hr 96.4 F-98.6 F 85-108 17-20 106-151/65-90 95-98 General appearance: no acute distress - Head Head exam: Present: normal inspection - Eye Eye exam: Present: EOMI Pupils: Present: ARIAN - ENT ENT exam: Present: normal exam Ear exam: Present: intact Mouth exam: Present: normal external inspection - Neck Neck exam: Present: normal inspection - Respiratory Respiratory exam: Present: clear to auscultation bilaterally - Cardiovascular Cardiovascular exam: Present: RRR - GI/Abdominal GI/Abdominal exam: Present: soft (colostomy) - Extremities Exam Extremities exam: Present: other (Left thigh tenderness) - Back Exam Back exam: Present: vertebral tenderness - Neurological Exam Neurological exam: Present: abnormal gait - Skin Skin exam: Present: normal color Results - Labs CBC & BMP: 04/21/17 02:13 04/21/17 02:13 Lab Results: I have reviewed the past 24 hour labs Quality Measures - VTE Contraindication to Pharmacological VTE Prophylaxis: Already on Theraputic Agent , No Prophylaxis Needed Specialty Discharge - Follow Up or Referrals
[2017-04-26] MEDS: INSULIN LISPRO 100 UNIT/ML SUBCUT SCH ×2 (08:41→11:45)
[2017-04-26] MEDS: MAGNESIUM OXIDE 400 MG TABLET PO SCH ×2 (10:03→14:47)
[2017-04-26] MEDS: APIXABAN 5 MG TABLET PO SCH (10:03)
[2017-04-26] MEDS: FOLIC ACID 1 MG TABLET PO SCH (10:03)
[2017-04-26] MEDS: CALCIUM (CARBONATE)/VITAMIN D 600 MG-400 UNIT TABLET PO SCH (10:03)
[2017-04-26] MEDS: PANTOPRAZOLE 40 MG TABLET PO SCH (10:03)
[2017-04-26] MEDS: GLIMEPIRIDE 4 MG TABLET PO SCH (10:04)
[2017-04-26] MEDS: PREGABALIN 75 MG CAPSULE PO PRN (10:06)
[2017-04-26] MEDS ORDERED: oxyCODONE/ACETAMINOPHEN 5-325 MG TABLET PO PRN (11:00)
--- NOTE | 2017-04-26 15:54 | Discharge Summary ---
Hospital Course - Hospital Course Hospital Course: 56 year old black female presented to [facility] for further evaluation of shortness of breath and mild hemoptysis.. Her PMHx was significant for hypertension, Migraine, Diabetes, Dyslipidemia, asthma, GERD, Fatty liver, Colon cancer (remission x20 years), Degenerative disk disease, ovarian cyst. She reports having IVC filter placed while in [place] at the time of her colon cancer diagnosis. She reported getting up from bed and started feeling short of breath. She sees Dr Arguelles for chronic left leg pain (s/ p fracture 3 years ago) and back pain, last seen 03/25/17. She also had acute kidney injury on presentation .A venous Doppler ultrasound of the lower extremities revealed significant DVT throughout the left lower extremity as well as occlusion of the right common femoral vein with thrombosis. CT scan of the chest could not be done due to her renal failure. A VQ scan was done which was low probability for pulmonary embolism, but due to her mild chest discomfort and hemoptysis was felt that she had at least some pulmonary embolism as well. She was treated with Lovenox initially for several days and she was in intensive care unit. She was stabilized and transferred to the floor. Ultimately she was switched to oral Eliquis, which she tolerated quite well. She has no previous history of pulmonary embolism or DVT. Her main risk factor for getting DVT was actually [employer] transportation from [place] to [place] and back without taking much breaks in between in the car. She has no history of thrombophilia. She was seen by consultation with pulmonology as well as nephrology. Her acute kidney injury significantly improved and her anti -correlation was adjusted accordingly. Pulmonary pulmonology recommended lifelong anticoagulation. But since she has no previous history of DVT and pulmonary embolism, will recommend treatment at least for 6 months. Her primary care physician can then reassess her lower extremities with an ultrasound and then decide about continuation of anticoagulation are not. He was given extensive educational in the hospital including not traveling for long distances in the vehicle more than an hour. She voiced understanding otherwise she has no risk factors that needs to be addressed with lifelong anticoagulation. She was given physical therapy on the floor. public welfare worker and shoe caser were consulted to send her to swing bed rehab, but due to her insurance issues that could not be arranged. Therefore shoe caser has arranged home health aide home health nurse as well as home health physical therapy. Patient is agreeable to this plan as she is ambulating now some with the help of physical therapy and would like to continue to do so at home. Her PCP is Dr Suarez. She will need at least 6 months of anticoagulation, and subsequently her primary care physician Dr. Shara ontiveros will make a decision about continuation of for treatment beyond 6 months, based on her symptoms and results of ultrasound. However she is aware that if she gets another episode of DVT or pulmonary embolism then she would be candidate for lifelong anticoagulation. Since she is aware of her risk of getting DVTs with travel which are normal person can get DVT with prolonged travel, has no extra risk for lifelong anticoagulation that needs to be addressed with lifelong anticoagulation. She has no further hemoptysis and pain and swelling in the legs has much improved. She has reached maximal hospital benefit and being discharged home in improved and stable condition. Descriptions were written for her endoscopy discharge instructions were provided. - Time spent with patient Time with patient DS: Greater than 30 minutes Diagnosis - Discharge Diagnosis (1) Deep vein thrombosis (DVT) of both lower extremities Status: Acute (2) Suspected pulmonary embolism Status: Ruled-out Specialty Discharge - Follow Up or Referrals Discharge Plan - Discharge Data Condition at Discharge: Stable Discharge Diet: diabetic diet, low salt diet Activity: as per physical therapy Weight Bearing at Discharge: full weight bearing Driving: not until seen by doctor Contact your physician if you experience:: Shortness of breath, Bleeding - Discharge Medications New Docusate Sodium Cap [Colace Cap] 100 mg PO BID PRN capsule PRN Reason: Constipation Apixaban [Eliquis] 5 mg PO BID #60 tablet Continue Glimepiride [Amaryl] 4 mg PO QAM Metformin HCl [Glucophage] 1,000 mg PO BID W/MEALS Lansoprazole [Prevacid] 30 mg PO DAILY W/BREAKFAST Albuterol Sulfate [Proair HFA] 2 puff INH Q4H PRN PRN Reason: Shortness Of Breath/Wheezing Magnesium Oxide 400 mg PO TID Insulin Glargine [Lantus] 70 unit SUBCUT BEDTIME Folic Acid Tab 1 mg PO DAILY Aspirin EC Tab 81 mg PO BEDTIME Biotin 10,000 mcg PO QAM Calcium Carbonate/Vitamin D3 [Calcium 600-Vit D3 800 Tablet] 1 each PO BID Pregabalin [Lyrica] 75 mg PO TID PRN PRN Reason: Pain Promethazine Tab [Phenergan Tab] 25 mg PO Q4H PRN PRN Reason: Nausea hydrALAZINE TAB [Apresoline Tab] 100 mg PO BID #30 Amlodipine Besylate/Benazepril [Amlodipine-Benazepril 10-40 mg] 1 capsule PO QAM Potassium Chloride [Klor-Con M20] 20 meq PO QAM Tizanidine HCl [Zanaflex] 4 mg PO TID PRN PRN Reason: muscle spasms Oxycodone HCl/Acetaminophen [Percocet 10-325 mg Tablet] 1 each PO Q6H PRN # 40 PRN Reason: Pain - Follow Up or Referral - Forms/Instructions Instructions: Methicillin Resistant Staphylococcus Aureus (DC) Exam - Constitutional Vitals: Period Temp Pulse Resp BP Sys/Hernandez Pulse Ox Last 24 Hr 96.9 F-98.9 F 81-120 18-20 118-137/65-74 95-98 Exam: General: No Acute Distress HEENT: Normocephalic, atraumatic, Extra ocular movements intact Neck: Supple, No JVD Chest: Clear to auscultation B/L CV: S1 + S2 audible without murmur, gallop or rub Abd: soft, NT, Non-distended, BS + Ext: No edema Skin: No purpura, bruising or rash Rheumatologic: No Joint deformities Neurologic: Strength 5/5 all extremities, no gross sensory deficits Discharge Results Labs on day of discharge: Labs from last 24 hours 04/26/17 04/26/17 04/25/17 10:53 06:47 20:31 POC Glucose 202 H 119 H 150 H 04/25/17 15:36 POC Glucose 76 DS: Provider Date of admission: 04/17/17 13:48 Primary care physician: . No PCP Attending physician on admission: Ana Freeman MD Consults: 04/17/17 15:33 Consult to Case Mgmt/Social Srvs [CONS] Routine Reason for Case Mgmt/Social Srvs: Discharge Planning Consult to Physician [CONS] Routine Comment: VY Consulting Provider: Willem Yu Jr. Person Notified: KRISTAL Fregoso Date Notified: 04/17/17 Time Notified: 16:01 04/17/17 15:44 Consult to Physician [CONS] Routine Comment: DVT/PE Consulting Provider: Gaston Stein Person Notified: KRISTAL Morataya Date Notified: 04/17/17 Time Notified: 15:53 04/20/17 09:33 Consult to Physician [CONS] Routine Comment: pain management patient Consulting Provider: Kathia Arguelles 04/20/17 10:25 Consult to Physical Therapy [CONS] Routine Reason for Physical Therapy: Ambulation Start Therapy: Today 04/21/17 08:59 Consult to Case Mgmt/Social Srvs [CONS] Routine Reason for Case Mgmt/Social Srvs: Home Health Rehab Other Consult Comment: precert for Eliquis; set up SN, Aid, and PT for discharge 04/24/17 15:31 Consult to Physical Therapy [CONS] Routine Reason for Physical Therapy: Other Consult Comment: Deliver Standard Walker to Rm 337 before D/C; Pt 5ft 7in 291 lbs 04/24/17 15:33 Consult to Case Mgmt/Social Srvs [CONS] Routine Reason for Case Mgmt/Social Srvs: Equipment Consult Comment: Deliver a BSC to room 337 before Pt is D/C'd; Pt 5ft 7in 291 lbs. Discharging clinician: Dallin Mares MD
[2017-04-26 17:11] VITALS: BP 145/84
[2017-04-26] MEDS ORDERED: APIXABAN 5 MG TABLET PO SCH (21:00)
== END 2017-04-26 17:42 | disposition home health service (06) | DRG 300 ==
LOC: EDUNIT# → EDBD → N.ED 09:11 → SUATTDRO 13:48 → N.EDINP 13:48 → N.CC 14:13 → N.3E 04-19 13:44
PROVIDERS: ADMIT Family Medicine; ATTEND Hospitalist

== ENCOUNTER 2019-07-08 08:53 | Inpatient (IN) ==
[2019-07-08] MEDS ORDERED: LORazepam 2 MG/1 ML VIAL ONE (09:27)
[2019-07-08] MEDS ORDERED: levETIRAcetam 500 MG/5 ML VIAL IV ONE (09:31)
[2019-07-08 09:53] LABS: ABG Base Excess -3.5 MMOL/L (-2.5-2.5); ABG HCO3 21.5 MMOL/L (20-26); ABG Oxygen Saturation 99.1 % (95-100); ABG PCO2 48.1 MM HG (35-48); ABG PH 7.294 (7.35-7.45); ABG TCO2 21.1 MMOL/L (23-27)
[2019-07-08] MEDS ORDERED: PROPOFOL 1,000 MG/100 ML BOTTLE IV ONE (09:56)
[2019-07-08 10:07] LABS: Apearance,Urine CLEAR (Clear); Bilirubin,Urine Negative (Negative); Blood, Urine Small mg/dL (Negative); Glucose,Urine (UA) >=500 mg/dL (Negative); Ketones,Urine Negative (Negative); Nitrite,Urine Negative (Negative); Protein,Urine 30 MG/DL; RBC,Urine 3 /HPF (0-4); Urine Color Colorless (Yellow); Urine Specific Gravity 1.005 (1.001-1.035); Urine Urobilinogen < 2.0 EU/DL (0.2-1.0)
[2019-07-08 10:09] LABS: Barbiturates Screen,Urine Negative (Negative); Benzodiazepines Screen,Urine Negative (Negative); Cannabinoid Screen,Urine Negative (Negative); Opiate Screen,Urine Negative (Negative); Phencyclidine Screen,Urine Negative (Negative)
[2019-07-08] MEDS ORDERED: ROCURONIUM 100 MG/10 ML VIAL IV ONE (10:22)
[2019-07-08] MEDS ORDERED: ETOMIDATE 20 MG/10 ML VIAL IV ONE (10:22)
[2019-07-08 10:33] LABS: Basophils % 0.1 % (0.0-0.8); Eosinophils # 0.1 10*3/uL (0.0-0.87); Eosinophils % 0.9 % (0.00-10.9); Hematocrit 40.3 VOL% (35.7-47.0); Hemoglobin 12.2 GM/DL (12.0-16.0); Immature Granulocytes % 0.4 %; Immature Granulocytes Absolute 0.03 #; Lymphocytes # 0.9 10*3/uL (1.4-4.0); Lymphocytes % 10.6 % (21.3-54.2); Mean Corpuscular HGB Conc 30.3 GM/DL (32-36); Mean Corpuscular Volume 94.4 FL (87-102); Mean Platelet Volume 12.1 FL (9.6-12.0); Monocytes % 3.2 % (1.7-12.7); Neutrophils % 84.8 % (38.7-73.9); Platelet Count 135 T/CUMM (130-400); Red Blood Count 4.27 MC/CUMM (3.8-5.5); Red Cell Distribution Width 13.7 % (9.3-17.3); White Blood Count 8.2 T/CUMM (4-12)
[2019-07-08 10:39] LABS: INR 1.2; PT Patient Result 12.7 SECS (9.6-12.2); Partial Thromboplastin Time 24.7 SECS (20.8-36.0)
[2019-07-08 10:59] LABS: Alanine Aminotransferase 23 U/L (13-56); Albumin 3.3 G/DL (3.4-5.0); Alkaline Phosphatase 86 U/L (45-117); Aspartate Amino Transferase 60 U/L (0-37); Blood Urea Nitrogen 20 MG/DL (7-18); Calcium 8.5 MG/DL (8.5-10.1); Estimated Glom Filtration Rate 49 ML/MIN; Glucose 241 MG/DL (74-106); Osmolality,Calculated 289.4 MOS/KG (273-304); Total Protein 8.2 G/DL (6.4-8.3)
[2019-07-08] MEDS ORDERED: hydrALAZINE 20 MG/1 ML VIAL IV STA (11:29)
[2019-07-08] MEDS: PROPOFOL 1,000 MG/100 ML BOTTLE IV SCH (13:09)
[2019-07-08] MEDS: hydrALAZINE 20 MG/1 ML VIAL IV PRN ×2 (13:42→16:30)
[2019-07-08] MEDS ORDERED: MAGNESIUM SULF RIDER 4 GM in PREMIX 1 EACH IV PRN (13:57)
[2019-07-08] MEDS ORDERED: GLUCAGON 1 MG VIAL IM PRN (13:57)
[2019-07-08] MEDS ORDERED: DEXTROSE 50% 25 GM/50 ML VIAL IV PRN (13:57)
[2019-07-08] MEDS ORDERED: LORazepam 2 MG/1 ML VIAL IM PRN (14:00)
[2019-07-08] MEDS: MEROPENEM 500 MG in SODIUM CHLORIDE 0.9% 100 ML IV SCH ×2 (14:34→21:41)
[2019-07-08] MEDS: INSULIN LISPRO 100 UNIT/ML SUBCUT SCH (18:32)
[2019-07-08] MEDS ORDERED: CARVEDILOL 6.25 MG TABLET PO ONE (21:08)
[2019-07-08] MEDS: oxyCODONE/ACETAMINOPHEN 5-325 MG TABLET PO PRN (21:40)
[2019-07-09] MEDS: PROPOFOL 1,000 MG/100 ML BOTTLE IV SCH ×5 (00:47→23:52)
[2019-07-09] MEDS: INSULIN LISPRO 100 UNIT/ML SUBCUT SCH ×4 (03:33→18:05)
[2019-07-09 04:00] LABS: Basophils % 0.1 % (0.0-0.8); Eosinophils % 0.1 % (0.00-10.9); Hematocrit 36.9 VOL% (35.7-47.0); Hemoglobin 11.5 GM/DL (12.0-16.0); Immature Granulocytes % 0.2 %; Immature Granulocytes Absolute 0.02 #; Lymphocytes # 1.7 10*3/uL (1.4-4.0); Lymphocytes % 21.3 % (21.3-54.2); Mean Corpuscular HGB Conc 31.2 GM/DL (32-36); Mean Corpuscular Volume 88.9 FL (87-102); Mean Platelet Volume 10.5 FL (9.6-12.0); Monocytes % 8.3 % (1.7-12.7); Platelet Count 127 T/CUMM (130-400); Red Blood Count 4.15 MC/CUMM (3.8-5.5); Red Cell Distribution Width 13.4 % (9.3-17.3); White Blood Count 8.1 T/CUMM (4-12)
[2019-07-09 04:12] LABS: ABG Base Excess 5.4 MMOL/L (-2.5-2.5); ABG HCO3 26.4 MMOL/L (20-26); ABG Oxygen Saturation 98.7 % (95-100); ABG PCO2 27.4 MM HG (35-48); ABG PO2 215.1 MM HG (80-95); ABG TCO2 27.2 MMOL/L (23-27); Allen Test Positive; Pt O2 Delivery Device Ventilator
[2019-07-09 04:14] LABS: ABG PH 7.601 (7.35-7.45)
[2019-07-09 04:50] LABS: Albumin 2.4 G/DL (3.4-5.0); Bilirubin,Total 0.9 MG/DL (0.2-1.0); Calcium 8.4 MG/DL (8.5-10.1); Osmolality,Calculated 295.7 MOS/KG (273-304); Thyroid Stimulating Hormone 0.413 uIU/ml (0.358-3.74); Total Protein 5.8 G/DL (6.4-8.3)
[2019-07-09] MEDS: POTASSIUM CHLORIDE RIDER 10 MEQ in PREMIX 1 EACH IV PRN ×4 (06:31→10:21)
[2019-07-09] MEDS: MEROPENEM 500 MG in SODIUM CHLORIDE 0.9% 100 ML IV SCH ×3 (06:31→22:17)
[2019-07-09] MEDS: MAGNESIUM SULF RIDER 2 GM in PREMIX 1 EACH IV PRN (07:00)
[2019-07-09] MEDS: PANTOPRAZOLE 40 MG VIAL IV SCH (08:11)
[2019-07-09] MEDS: CARVEDILOL 6.25 MG TABLET PO SCH ×2 (08:11→16:03)
[2019-07-09] MEDS: SODIUM CHLORIDE 0.9% 1,000 ML IV SCH (10:21)
[2019-07-09 14:11] LABS: Calcium 8.3 MG/DL (8.5-10.1); Osmolality,Calculated 295.6 MOS/KG (273-304)
[2019-07-10] MEDS: INSULIN LISPRO 100 UNIT/ML SUBCUT SCH ×5 (01:06→23:33)
[2019-07-10 03:52] LABS: ABG Base Excess 2.4 MMOL/L (-2.5-2.5); ABG HCO3 26.5 MMOL/L (20-26); ABG Oxygen Saturation 98.9 % (95-100); ABG PH 7.484 (7.35-7.45); ABG TCO2 23.1 MMOL/L (23-27); Pt O2 Delivery Device Ventilator
[2019-07-10 04:20] LABS: Basophils % 0.3 % (0.0-0.8); Eosinophils # 0.2 10*3/uL (0.0-0.87); Eosinophils % 3.1 % (0.00-10.9); Hematocrit 32.1 VOL% (35.7-47.0); Hemoglobin 9.7 GM/DL (12.0-16.0); Immature Granulocytes % 0.3 %; Immature Granulocytes Absolute 0.02 #; Lymphocytes # 1.6 10*3/uL (1.4-4.0); Lymphocytes % 23.6 % (21.3-54.2); Mean Corpuscular HGB Conc 30.2 GM/DL (32-36); Mean Corpuscular Volume 90.9 FL (87-102); Mean Platelet Volume 10.7 FL (9.6-12.0); Monocytes % 9.7 % (1.7-12.7); Platelet Count 104 T/CUMM (130-400); Red Blood Count 3.53 MC/CUMM (3.8-5.5); White Blood Count 6.8 T/CUMM (4-12)
[2019-07-10 04:38] LABS: Albumin 2.3 G/DL (3.4-5.0); Bilirubin,Total 0.4 MG/DL (0.2-1.0); Calcium 7.7 MG/DL (8.5-10.1); Osmolality,Calculated 288.8 MOS/KG (273-304); Total Protein 5.3 G/DL (6.4-8.3)
[2019-07-10] MEDS: SODIUM CHLORIDE 0.9% 1,000 ML IV SCH ×2 (04:39→07:26)
[2019-07-10] MEDS: PROPOFOL 1,000 MG/100 ML BOTTLE IV SCH ×2 (06:35→13:04)
[2019-07-10] MEDS: MEROPENEM 500 MG in SODIUM CHLORIDE 0.9% 100 ML IV SCH ×3 (06:36→21:24)
[2019-07-10] MEDS: POTASSIUM CHLORIDE RIDER 10 MEQ in PREMIX 1 EACH IV PRN ×6 (07:36→23:50)
[2019-07-10] MEDS: CARVEDILOL 6.25 MG TABLET PO SCH ×2 (10:35→17:18)
[2019-07-10] MEDS: PANTOPRAZOLE 40 MG VIAL IV SCH (10:36)
[2019-07-10] MEDS: MAGNESIUM SULF RIDER 2 GM in PREMIX 1 EACH IV PRN (11:42)
[2019-07-10] MEDS: hydrALAZINE 20 MG/1 ML VIAL IV PRN ×2 (15:17→19:36)
[2019-07-10] MEDS: MORPHINE 4 MG/1 ML VIAL IV PRN ×2 (17:49→21:25)
[2019-07-10] MEDS: METOPROLOL TARTRATE 5 MG/5 ML VIAL IV PRN (17:51)
[2019-07-10] MEDS: oxyCODONE/ACETAMINOPHEN 5-325 MG TABLET PO PRN (20:40)
[2019-07-11] MEDS: SODIUM CHLORIDE 0.9% 1,000 ML IV SCH ×3 (03:11→21:08)
[2019-07-11] MEDS: MORPHINE 4 MG/1 ML VIAL IV PRN ×3 (03:40→14:26)
[2019-07-11 05:14] LABS: Basophils % 0.2 % (0.0-0.8); Eosinophils # 0.2 10*3/uL (0.0-0.87); Eosinophils % 2.7 % (0.00-10.9); Hematocrit 34.5 VOL% (35.7-47.0); Hemoglobin 10.5 GM/DL (12.0-16.0); Immature Granulocytes % 0.2 %; Immature Granulocytes Absolute 0.02 #; Lymphocytes # 1.1 10*3/uL (1.4-4.0); Lymphocytes % 13.6 % (21.3-54.2); Mean Corpuscular HGB Conc 30.4 GM/DL (32-36); Mean Corpuscular Volume 91.3 FL (87-102); Mean Platelet Volume 10.8 FL (9.6-12.0); Monocytes % 9.5 % (1.7-12.7); Neutrophils % 73.8 % (38.7-73.9); Platelet Count 107 T/CUMM (130-400); Red Blood Count 3.78 MC/CUMM (3.8-5.5); Red Cell Distribution Width 13.6 % (9.3-17.3); White Blood Count 8.1 T/CUMM (4-12)
[2019-07-11 05:41] LABS: Albumin 2.4 G/DL (3.4-5.0); Bilirubin,Total 0.4 MG/DL (0.2-1.0); Calcium 8.4 MG/DL (8.5-10.1); Osmolality,Calculated 286.1 MOS/KG (273-304); Total Protein 6.1 G/DL (6.4-8.3)
[2019-07-11 05:43] LABS: Calcium 8.5 MG/DL (8.5-10.1); Osmolality,Calculated 291.7 MOS/KG (273-304); Prealbumin 13.2 MG/DL (20-40)
[2019-07-11] MEDS: MEROPENEM 500 MG in SODIUM CHLORIDE 0.9% 100 ML IV SCH ×3 (06:29→21:09)
[2019-07-11] MEDS: METOPROLOL TARTRATE 5 MG/5 ML VIAL IV PRN (06:32)
[2019-07-11] MEDS: INSULIN LISPRO 100 UNIT/ML SUBCUT SCH ×3 (06:36→18:23)
[2019-07-11] MEDS: CARVEDILOL 6.25 MG TABLET PO SCH ×2 (09:00→17:16)
[2019-07-11] MEDS: PANTOPRAZOLE 40 MG VIAL IV SCH (09:08)
[2019-07-11] MEDS: oxyCODONE/ACETAMINOPHEN 5-325 MG TABLET PO PRN (11:44)
[2019-07-11] MEDS: hydrALAZINE 20 MG/1 ML VIAL IV PRN ×2 (11:54→23:51)
[2019-07-11] MEDS ORDERED: DEXTROSE 10% 250 ML BAG IV PRN (18:27)
[2019-07-12] MEDS: INSULIN LISPRO 100 UNIT/ML SUBCUT SCH ×4 (01:35→21:01)
[2019-07-12 04:42] LABS: Basophils % 0.1 % (0.0-0.8); Eosinophils # 0.2 10*3/uL (0.0-0.87); Eosinophils % 3.1 % (0.00-10.9); Hemoglobin 10.5 GM/DL (12.0-16.0); Mean Corpuscular Volume 91.4 FL (87-102); Mean Platelet Volume 10.9 FL (9.6-12.0); Monocytes % 7.3 % (1.7-12.7); Neutrophils % 75.5 % (38.7-73.9); Platelet Count 108 T/CUMM (130-400); Red Blood Count 3.83 MC/CUMM (3.8-5.5); Red Cell Distribution Width 13.2 % (9.3-17.3); White Blood Count 6.8 T/CUMM (4-12)
[2019-07-12 05:06] LABS: Albumin 2.4 G/DL (3.4-5.0); Bilirubin,Total 0.5 MG/DL (0.2-1.0); Calcium 8.6 MG/DL (8.5-10.1); Osmolality,Calculated 285.1 MOS/KG (273-304); Total Protein 6.1 G/DL (6.4-8.3)
[2019-07-12] MEDS: MEROPENEM 500 MG in SODIUM CHLORIDE 0.9% 100 ML IV SCH ×3 (06:05→21:42)
[2019-07-12] MEDS: MORPHINE 4 MG/1 ML VIAL IV PRN (08:06)
[2019-07-12] MEDS: CARVEDILOL 6.25 MG TABLET PO SCH ×2 (08:08→17:29)
[2019-07-12] MEDS: oxyCODONE/ACETAMINOPHEN 5-325 MG TABLET PO PRN ×3 (08:09→21:41)
[2019-07-12] MEDS: hydrALAZINE 20 MG/1 ML VIAL IV PRN (08:14)
[2019-07-12] MEDS: PANTOPRAZOLE 40 MG VIAL IV SCH (08:15)
[2019-07-12] MEDS: SODIUM CHLORIDE 0.9% 1,000 ML IV SCH (20:26)
[2019-07-12] MEDS: levETIRAcetam 250 MG TABLET PO SCH (21:41)
[2019-07-13] MEDS: INSULIN LISPRO 100 UNIT/ML SUBCUT SCH ×4 (00:40→18:50)
[2019-07-13 04:26] LABS: Basophils % 0.2 % (0.0-0.8); Eosinophils # 0.3 10*3/uL (0.0-0.87); Eosinophils % 4.9 % (0.00-10.9); Hematocrit 34.3 VOL% (35.7-47.0); Hemoglobin 10.4 GM/DL (12.0-16.0); Immature Granulocytes % 0.4 %; Immature Granulocytes Absolute 0.02 #; Lymphocytes # 1.3 10*3/uL (1.4-4.0); Lymphocytes % 22.8 % (21.3-54.2); Mean Corpuscular HGB Conc 30.3 GM/DL (32-36); Mean Platelet Volume 10.6 FL (9.6-12.0); Monocytes % 9.7 % (1.7-12.7); Platelet Count 130 T/CUMM (130-400); Red Blood Count 3.73 MC/CUMM (3.8-5.5); White Blood Count 5.7 T/CUMM (4-12)
[2019-07-13 04:43] LABS: Albumin 2.5 G/DL (3.4-5.0); Bilirubin,Total 0.8 MG/DL (0.2-1.0); Calcium 8.4 MG/DL (8.5-10.1); Osmolality,Calculated 284.1 MOS/KG (273-304); Total Protein 6.2 G/DL (6.4-8.3)
[2019-07-13 04:44] LABS: Calcium 8.3 MG/DL (8.5-10.1); Osmolality,Calculated 285.1 MOS/KG (273-304); Prealbumin 14.5 MG/DL (20-40)
[2019-07-13] MEDS: MEROPENEM 500 MG in SODIUM CHLORIDE 0.9% 100 ML IV SCH ×3 (05:42→21:03)
[2019-07-13] MEDS: levETIRAcetam 250 MG TABLET PO SCH ×2 (09:00→21:00)
[2019-07-13] MEDS: oxyCODONE/ACETAMINOPHEN 5-325 MG TABLET PO PRN ×2 (09:01→17:11)
[2019-07-13] MEDS: CARVEDILOL 6.25 MG TABLET PO SCH ×2 (09:01→17:12)
[2019-07-13] MEDS: PANTOPRAZOLE 40 MG VIAL IV SCH (09:05)
[2019-07-13] MEDS ORDERED: ALBUTEROL 2.5 MG/3 ML NEB RESP TX PRN (15:00)
[2019-07-13] MEDS ORDERED: oxyCODONE/ACETAMINOPHEN 5-325 MG TABLET PO PRN (15:00)
[2019-07-13] MEDS: SODIUM CHLORIDE 0.9% 1,000 ML IV SCH (15:34)
[2019-07-13] MEDS: FOLIC ACID 1 MG TABLET PO SCH (21:00)
[2019-07-13] MEDS: FERROUS SULFATE 325 MG TABLET PO SCH (21:00)
[2019-07-13] MEDS: INSULIN GLARGINE 100 UNIT/ML SUBCUT SCH (21:01)
[2019-07-13] MEDS: MORPHINE 4 MG/1 ML VIAL IV PRN (22:09)
[2019-07-13] MEDS: hydrALAZINE 20 MG/1 ML VIAL IV PRN (22:10)
[2019-07-14] MEDS: INSULIN LISPRO 100 UNIT/ML SUBCUT SCH ×3 (00:40→14:25)
[2019-07-14] MEDS: oxyCODONE/ACETAMINOPHEN 5-325 MG TABLET PO PRN ×2 (03:02→17:05)
[2019-07-14 04:53] LABS: Basophils % 0.3 % (0.0-0.8); Eosinophils # 0.2 10*3/uL (0.0-0.87); Hematocrit 34.1 VOL% (35.7-47.0); Hemoglobin 10.3 GM/DL (12.0-16.0); Immature Granulocytes % 0.3 %; Immature Granulocytes Absolute 0.02 #; Lymphocytes # 1.2 10*3/uL (1.4-4.0); Lymphocytes % 19.6 % (21.3-54.2); Mean Corpuscular HGB Conc 30.2 GM/DL (32-36); Mean Corpuscular Volume 90.7 FL (87-102); Mean Platelet Volume 10.6 FL (9.6-12.0); Neutrophils % 66.8 % (38.7-73.9); Platelet Count 155 T/CUMM (130-400); Red Blood Count 3.76 MC/CUMM (3.8-5.5); Red Cell Distribution Width 12.6 % (9.3-17.3)
[2019-07-14 05:15] LABS: Albumin 2.5 G/DL (3.4-5.0); Bilirubin,Total 0.9 MG/DL (0.2-1.0); Calcium 8.7 MG/DL (8.5-10.1); Osmolality,Calculated 286.1 MOS/KG (273-304); Total Protein 6.1 G/DL (6.4-8.3)
[2019-07-14] MEDS: MEROPENEM 500 MG in SODIUM CHLORIDE 0.9% 100 ML IV SCH ×3 (06:39→20:59)
[2019-07-14] MEDS: MAGNESIUM SULF RIDER 2 GM in PREMIX 1 EACH IV PRN (07:10)
[2019-07-14] MEDS: ESCITALOPRAM 10 MG TABLET PO SCH (08:33)
[2019-07-14] MEDS: PANTOPRAZOLE 40 MG TABLET PO SCH (08:34)
[2019-07-14] MEDS: POTASSIUM CHLORIDE 20 MEQ TABLET PO SCH (08:35)
[2019-07-14] MEDS: FERROUS SULFATE 325 MG TABLET PO SCH ×2 (08:35→20:55)
[2019-07-14] MEDS: levETIRAcetam 250 MG TABLET PO SCH ×2 (08:35→20:55)
[2019-07-14] MEDS: CARVEDILOL 6.25 MG TABLET PO SCH ×2 (08:36→17:05)
[2019-07-14] MEDS: LOSARTAN 50 MG TABLET PO SCH (08:36)
[2019-07-14] MEDS: sitaGLIPtin 100 MG TABLET PO SCH (08:36)
[2019-07-14] MEDS: MORPHINE ER 30 MG TABLET PO PRN (10:44)
[2019-07-14] MEDS: POTASSIUM CHLORIDE 20 MEQ TABLET PO PRN (10:49)
[2019-07-14] MEDS: SODIUM CHLORIDE 0.9% 1,000 ML IV SCH (10:50)
[2019-07-14] MEDS: PANTOPRAZOLE 40 MG VIAL IV SCH (14:24)
[2019-07-14] MEDS: FOLIC ACID 1 MG TABLET PO SCH (20:55)
[2019-07-14] MEDS: ASPIRIN EC 81 MG TABLET PO SCH (20:55)
[2019-07-14] MEDS: APIXABAN 5 MG TABLET PO SCH (20:55)
[2019-07-14] MEDS: INSULIN GLARGINE 100 UNIT/ML SUBCUT SCH (21:39)
[2019-07-15] MEDS: INSULIN LISPRO 100 UNIT/ML SUBCUT SCH ×5 (00:24→17:52)
[2019-07-15] MEDS: MEROPENEM 500 MG in SODIUM CHLORIDE 0.9% 100 ML IV SCH ×3 (06:10→21:13)
[2019-07-15] MEDS: oxyCODONE/ACETAMINOPHEN 5-325 MG TABLET PO PRN ×2 (06:10→21:14)
[2019-07-15] MEDS: sitaGLIPtin 100 MG TABLET PO SCH (08:55)
[2019-07-15] MEDS: ESCITALOPRAM 10 MG TABLET PO SCH (08:55)
[2019-07-15] MEDS: CARVEDILOL 6.25 MG TABLET PO SCH ×2 (08:56→17:05)
[2019-07-15] MEDS: levETIRAcetam 250 MG TABLET PO SCH ×2 (08:56→21:12)
[2019-07-15] MEDS: PANTOPRAZOLE 40 MG VIAL IV SCH (08:56)
[2019-07-15] MEDS: PANTOPRAZOLE 40 MG TABLET PO SCH ×2 (08:56→09:01)
[2019-07-15] MEDS: POTASSIUM CHLORIDE 20 MEQ TABLET PO SCH (08:56)
[2019-07-15] MEDS: LOSARTAN 50 MG TABLET PO SCH (08:56)
[2019-07-15] MEDS: APIXABAN 5 MG TABLET PO SCH ×2 (08:56→21:13)
[2019-07-15] MEDS: FERROUS SULFATE 325 MG TABLET PO SCH ×2 (08:56→21:12)
[2019-07-15] MEDS: MORPHINE ER 30 MG TABLET PO PRN (10:19)
[2019-07-15] MEDS: POTASSIUM CHLORIDE 20 MEQ TABLET PO PRN ×3 (10:24→17:45)
[2019-07-15] MEDS: ASPIRIN EC 81 MG TABLET PO SCH (21:12)
[2019-07-15] MEDS: FOLIC ACID 1 MG TABLET PO SCH (21:12)
[2019-07-15] MEDS: hydrALAZINE 20 MG/1 ML VIAL IV PRN (21:18)
[2019-07-15] MEDS: INSULIN GLARGINE 100 UNIT/ML SUBCUT SCH (22:01)
[2019-07-16] MEDS: INSULIN LISPRO 100 UNIT/ML SUBCUT SCH ×4 (01:56→18:04)
[2019-07-16 04:33] LABS: Basophils % 0.3 % (0.0-0.8); Eosinophils # 0.2 10*3/uL (0.0-0.87); Eosinophils % 3.2 % (0.00-10.9); Hematocrit 36.4 VOL% (35.7-47.0); Hemoglobin 10.8 GM/DL (12.0-16.0); Immature Granulocytes % 0.2 %; Immature Granulocytes Absolute 0.01 #; Lymphocytes # 1.2 10*3/uL (1.4-4.0); Lymphocytes % 19.3 % (21.3-54.2); Mean Corpuscular HGB Conc 29.7 GM/DL (32-36); Mean Corpuscular Volume 92.2 FL (87-102); Mean Platelet Volume 10.3 FL (9.6-12.0); Monocytes % 7.7 % (1.7-12.7); Neutrophils % 69.3 % (38.7-73.9); Platelet Count 204 T/CUMM (130-400); Red Blood Count 3.95 MC/CUMM (3.8-5.5); Red Cell Distribution Width 12.7 % (9.3-17.3); White Blood Count 6.2 T/CUMM (4-12)
[2019-07-16 04:47] LABS: Calcium 9.5 MG/DL (8.5-10.1); Osmolality,Calculated 282.1 MOS/KG (273-304)
[2019-07-16] MEDS: levETIRAcetam 250 MG TABLET PO SCH ×2 (08:06→20:35)
[2019-07-16] MEDS: MORPHINE ER 30 MG TABLET PO PRN (08:06)
[2019-07-16] MEDS: APIXABAN 5 MG TABLET PO SCH ×2 (08:06→20:35)
[2019-07-16] MEDS: CARVEDILOL 6.25 MG TABLET PO SCH ×2 (08:07→16:39)
[2019-07-16] MEDS: sitaGLIPtin 100 MG TABLET PO SCH (08:07)
[2019-07-16] MEDS: ESCITALOPRAM 10 MG TABLET PO SCH (08:07)
[2019-07-16] MEDS: LOSARTAN 50 MG TABLET PO SCH (08:07)
[2019-07-16] MEDS: PANTOPRAZOLE 40 MG TABLET PO SCH (08:07)
[2019-07-16] MEDS: FERROUS SULFATE 325 MG TABLET PO SCH ×2 (08:07→20:35)
[2019-07-16] MEDS: POTASSIUM CHLORIDE 20 MEQ TABLET PO SCH (08:07)
[2019-07-16] MEDS: PANTOPRAZOLE 40 MG VIAL IV SCH (08:08)
[2019-07-16] MEDS: ASPIRIN EC 81 MG TABLET PO SCH (20:35)
[2019-07-16] MEDS: FOLIC ACID 1 MG TABLET PO SCH (20:35)
[2019-07-16] MEDS: INSULIN GLARGINE 100 UNIT/ML SUBCUT SCH (20:39)
[2019-07-17] MEDS: INSULIN LISPRO 100 UNIT/ML SUBCUT SCH ×4 (00:31→17:58)
[2019-07-17] MEDS: PANTOPRAZOLE 40 MG TABLET PO SCH (08:00)
[2019-07-17] MEDS: CARVEDILOL 6.25 MG TABLET PO SCH ×2 (08:02→18:47)
[2019-07-17] MEDS: ESCITALOPRAM 10 MG TABLET PO SCH (08:02)
[2019-07-17] MEDS: levETIRAcetam 250 MG TABLET PO SCH (08:03)
[2019-07-17] MEDS: FERROUS SULFATE 325 MG TABLET PO SCH (08:04)
[2019-07-17] MEDS: LOSARTAN 50 MG TABLET PO SCH (08:04)
[2019-07-17] MEDS: POTASSIUM CHLORIDE 20 MEQ TABLET PO SCH (08:04)
[2019-07-17] MEDS: APIXABAN 5 MG TABLET PO SCH (08:04)
[2019-07-17] MEDS: sitaGLIPtin 100 MG TABLET PO SCH (08:04)
[2019-07-17] MEDS: PANTOPRAZOLE 40 MG VIAL IV SCH (08:48)
[2019-07-17 16:35] LABS: Albumin 2.8 G/DL (3.4-5.0); Bilirubin,Total 0.5 MG/DL (0.2-1.0); Calcium 9.6 MG/DL (8.5-10.1); Osmolality,Calculated 281.4 MOS/KG (273-304)
[2019-07-17 16:42] LABS: Basophils % 0.5 % (0.0-0.8); Eosinophils # 0.1 10*3/uL (0.0-0.87); Eosinophils % 1.7 % (0.00-10.9); Hematocrit 37.1 VOL% (35.7-47.0); Hemoglobin 10.6 GM/DL (12.0-16.0); Immature Granulocytes % 2.4 %; Lymphocytes # 1.5 10*3/uL (1.4-4.0); Mean Corpuscular HGB Conc 28.6 GM/DL (32-36); Mean Corpuscular Volume 97.4 FL (87-102); Mean Platelet Volume 10.3 FL (9.6-12.0); Monocytes % 10.1 % (1.7-12.7); Neutrophils % 67.3 % (38.7-73.9); Platelet Count 234 T/CUMM (130-400); Red Blood Count 3.81 MC/CUMM (3.8-5.5); Red Cell Distribution Width 12.8 % (9.3-17.3); White Blood Count 8.2 T/CUMM (4-12)
[2019-07-17 18:36] LABS: ABG Base Excess 5.6 MMOL/L (-2.5-2.5); ABG HCO3 30.3 MMOL/L (20-26); ABG Oxygen Saturation 96.9 % (95-100); ABG PCO2 44.8 MM HG (35-48); ABG PH 7.448 (7.35-7.45); ABG PO2 99.6 MM HG (80-95); ABG TCO2 31.7 MMOL/L (23-27)
[2019-07-17 19:05] LABS: Blood Urea Nitrogen 21 MG/DL (7-18); Calcium 9.8 MG/DL (8.5-10.1); Estimated Glom Filtration Rate 45 ML/MIN; Glucose 91 MG/DL (74-106); Osmolality,Calculated 283.3 MOS/KG (273-304); Troponin I < 0.015 NG/ML (0.00-0.045)
[2019-07-17] MEDS ORDERED: hydrALAZINE 20 MG/1 ML VIAL IV PRN (20:21)
[2019-07-17] MEDS: INSULIN GLARGINE 100 UNIT/ML SUBCUT SCH (20:30)
[2019-07-18] MEDS: LORazepam 2 MG/1 ML VIAL IV PRN ×2 (00:40→02:51)
[2019-07-18] MEDS: levETIRAcetam 250 MG TABLET PO SCH ×2 (00:46→10:16)
[2019-07-18] MEDS: FOLIC ACID 1 MG TABLET PO SCH ×2 (00:47→20:02)
[2019-07-18] MEDS: FERROUS SULFATE 325 MG TABLET PO SCH ×3 (00:47→20:02)
[2019-07-18] MEDS: APIXABAN 5 MG TABLET PO SCH ×3 (00:47→20:02)
[2019-07-18] MEDS: ASPIRIN EC 81 MG TABLET PO SCH ×2 (00:48→20:02)
[2019-07-18] MEDS: SODIUM CHLORIDE 0.9% 1,000 ML IV SCH ×3 (00:48→17:30)
[2019-07-18] MEDS: INSULIN LISPRO 100 UNIT/ML SUBCUT SCH ×4 (01:04→18:20)
[2019-07-18] MEDS ORDERED: ETOMIDATE 20 MG/10 ML VIAL IV ONE ×3 (03:04→03:16)
[2019-07-18] MEDS ORDERED: VECURONIUM 10 MG VIAL IV ONE ×2 (03:04→03:16)
[2019-07-18] MEDS ORDERED: SUCCINYLCHOLINE 200 MG/10 ML VIAL ONE (03:04)
[2019-07-18] MEDS ORDERED: PROPOFOL 1,000 MG/100 ML BOTTLE IV ONE (03:13)
[2019-07-18 04:10] LABS: Basophils % 0.3 % (0.0-0.8); Hematocrit 36.3 VOL% (35.7-47.0); Hemoglobin 11.3 GM/DL (12.0-16.0); Immature Granulocytes % 0.3 %; Immature Granulocytes Absolute 0.04 #; Lymphocytes # 0.7 10*3/uL (1.4-4.0); Lymphocytes % 6.1 % (21.3-54.2); Mean Corpuscular HGB Conc 31.1 GM/DL (32-36); Mean Corpuscular Volume 90.5 FL (87-102); Mean Platelet Volume 9.6 FL (9.6-12.0); Monocytes % 3.5 % (1.7-12.7); Neutrophils % 89.8 % (38.7-73.9); Platelet Count 295 T/CUMM (130-400); Red Blood Count 4.01 MC/CUMM (3.8-5.5); Red Cell Distribution Width 12.7 % (9.3-17.3); White Blood Count 11.6 T/CUMM (4-12)
[2019-07-18 04:27] LABS: ABG Base Excess 6.1 MMOL/L (-2.5-2.5); ABG HCO3 30.7 MMOL/L (20-26); ABG Oxygen Saturation 99.1 % (95-100); ABG PH 7.461 (7.35-7.45); ABG PO2 471.1 MM HG (80-95); Allen Test Positive; Pt O2 Delivery Device Ventilator
[2019-07-18 04:32] LABS: Troponin I 0.023 NG/ML (0.00-0.045)
[2019-07-18 04:59] LABS: Albumin 2.7 G/DL (3.4-5.0); Bilirubin,Total 0.8 MG/DL (0.2-1.0); Calcium 9.2 MG/DL (8.5-10.1); Osmolality,Calculated 281.7 MOS/KG (273-304)
[2019-07-18 05:27] LABS: Amorphous Crystals,Urine Moderate /HPF (Few); Apearance,Urine CLOUDY (Clear); Bilirubin,Urine Negative (Negative); Blood, Urine Moderate mg/dL (Negative); Glucose,Urine (UA) 50 mg/dL (Negative); Hyaline Casts,Urine 4 /LPF (0-3); Ketones,Urine 20 mg/dL (Negative); Mucus,Urine Occasional /LPF (Occasional); Nitrite,Urine Negative (Negative); Protein,Urine 100 MG/DL; RBC,Urine 3 /HPF (0-4); Urine Color Yellow (Yellow); Urine Specific Gravity 1.016 (1.001-1.035); Urine Urobilinogen < 2.0 EU/DL (0.2-1.0)
[2019-07-18 07:18] LABS: ABG Base Excess 5.6 MMOL/L (-2.5-2.5); ABG HCO3 29.5 MMOL/L (20-26); ABG Oxygen Saturation 99.2 % (95-100); ABG PCO2 36.8 MM HG (35-48); ABG PH 7.503 (7.35-7.45); ABG TCO2 25.7 MMOL/L (23-27); Allen Test Positive; Pt O2 Delivery Device Ventilator
[2019-07-18] MEDS: PROPOFOL 1,000 MG/100 ML BOTTLE IV SCH ×2 (10:18→17:00)
[2019-07-18] MEDS: POTASSIUM CHLORIDE 20 MEQ TABLET PO SCH (10:21)
[2019-07-18] MEDS: PANTOPRAZOLE 40 MG TABLET PO SCH (10:21)
[2019-07-18] MEDS: PANTOPRAZOLE 40 MG VIAL IV SCH (11:05)
[2019-07-18] MEDS: ESCITALOPRAM 10 MG TABLET PO SCH (11:05)
[2019-07-18] MEDS: LOSARTAN 50 MG TABLET PO SCH (11:06)
[2019-07-18] MEDS: CARVEDILOL 6.25 MG TABLET PO SCH ×2 (11:06→16:09)
[2019-07-18] MEDS: sitaGLIPtin 100 MG TABLET PO SCH (11:14)
[2019-07-18] MEDS: MEROPENEM 500 MG in SODIUM CHLORIDE 0.9% 100 ML IV SCH ×2 (14:12→21:26)
[2019-07-18] MEDS: ACETAMINOPHEN 325 MG/10.15 ML UDCUP PER TUBE PRN (17:01)
[2019-07-18] MEDS: hydrALAZINE 20 MG/1 ML VIAL IV PRN (20:03)
[2019-07-18] MEDS: INSULIN GLARGINE 100 UNIT/ML SUBCUT SCH (20:03)
[2019-07-19] MEDS: INSULIN LISPRO 100 UNIT/ML SUBCUT SCH ×4 (00:36→18:12)
[2019-07-19] MEDS: PROPOFOL 1,000 MG/100 ML BOTTLE IV SCH (04:06)
[2019-07-19] MEDS: SODIUM CHLORIDE 0.9% 1,000 ML IV SCH ×2 (04:07→06:12)
[2019-07-19] MEDS: hydrALAZINE 20 MG/1 ML VIAL IV PRN ×2 (04:08→13:00)
[2019-07-19 04:40] LABS: Basophils % 0.2 % (0.0-0.8); Eosinophils % 0.2 % (0.00-10.9); Hematocrit 32.1 VOL% (35.7-47.0); Immature Granulocytes % 0.3 %; Immature Granulocytes Absolute 0.03 #; Lymphocytes # 1.6 10*3/uL (1.4-4.0); Mean Corpuscular HGB Conc 31.2 GM/DL (32-36); Mean Corpuscular Volume 90.2 FL (87-102); Mean Platelet Volume 10.1 FL (9.6-12.0); Monocytes % 13.8 % (1.7-12.7); Neutrophils % 69.5 % (38.7-73.9); Platelet Count 309 T/CUMM (130-400); Red Blood Count 3.56 MC/CUMM (3.8-5.5); Red Cell Distribution Width 12.9 % (9.3-17.3); White Blood Count 10.3 T/CUMM (4-12)
[2019-07-19 04:43] LABS: ABG Base Excess 5.2 MMOL/L (-2.5-2.5); ABG HCO3 29.1 MMOL/L (20-26); ABG Oxygen Saturation 98.3 % (95-100); ABG PCO2 36.8 MM HG (35-48); ABG PH 7.497 (7.35-7.45); ABG TCO2 25.5 MMOL/L (23-27); Allen Test Positive; Pt O2 Delivery Device Ventilator
[2019-07-19 05:12] LABS: Albumin 2.5 G/DL (3.4-5.0); Bilirubin,Direct 0.17 MG/DL (0.0-0.20); Bilirubin,Indirect 0.3 MG/DL (0.0-1.0); Bilirubin,Total 0.5 MG/DL (0.2-1.0); Calcium 8.4 MG/DL (8.5-10.1); Osmolality,Calculated 280.4 MOS/KG (273-304); Total Protein 6.5 G/DL (6.4-8.3)
[2019-07-19] MEDS: MEROPENEM 500 MG in SODIUM CHLORIDE 0.9% 100 ML IV SCH ×3 (05:33→20:32)
[2019-07-19] MEDS: POTASSIUM CHLORIDE 20 MEQ TABLET PO PRN (05:33)
[2019-07-19] MEDS: MAGNESIUM SULF RIDER 2 GM in PREMIX 1 EACH IV PRN (05:33)
[2019-07-19] MEDS: METOPROLOL TARTRATE 5 MG/5 ML VIAL IV PRN (05:41)
[2019-07-19] MEDS: PANTOPRAZOLE 40 MG VIAL IV SCH (08:00)
[2019-07-19] MEDS: POTASSIUM CHLORIDE 20 MEQ TABLET PO SCH (08:01)
[2019-07-19] MEDS: ESCITALOPRAM 10 MG TABLET PO SCH (08:01)
[2019-07-19] MEDS: FERROUS SULFATE 325 MG TABLET PO SCH ×2 (08:01→20:28)
[2019-07-19] MEDS: LOSARTAN 50 MG TABLET PO SCH (08:01)
[2019-07-19] MEDS: APIXABAN 5 MG TABLET PO SCH ×2 (08:02→20:28)
[2019-07-19] MEDS: CARVEDILOL 6.25 MG TABLET PO SCH ×2 (08:02→16:22)
[2019-07-19] MEDS ORDERED: DEXTROSE 10% 250 ML BAG IV PRN (09:10)
[2019-07-19] MEDS: DEXTROSE 5% 1,000 ML IV SCH ×2 (09:43→23:07)
[2019-07-19] MEDS: sitaGLIPtin 100 MG TABLET PO SCH (09:45)
[2019-07-19 10:52] LABS: ABG Base Excess 3.9 MMOL/L (-2.5-2.5); ABG HCO3 27.9 MMOL/L (20-26); ABG Oxygen Saturation 97.8 % (95-100); ABG PCO2 42.4 MM HG (35-48); ABG PH 7.435 (7.35-7.45); ABG TCO2 25.8 MMOL/L (23-27); Allen Test Positive; Pt O2 Delivery Device Ventilator
[2019-07-19] MEDS ORDERED: DEXAMETHASONE 4 MG/1 ML VIAL IV ONE (12:51)
[2019-07-19] MEDS: ALBUTEROL/IPRATROPIUM 3 ML NEB RESP TX SCH ×4 (13:15→23:38)
[2019-07-19] MEDS: ASPIRIN EC 81 MG TABLET PO SCH (20:28)
[2019-07-19] MEDS: FOLIC ACID 1 MG TABLET PO SCH (20:28)
[2019-07-19] MEDS: ACETAMINOPHEN 325 MG/10.15 ML UDCUP PER TUBE PRN (21:25)
[2019-07-20] MEDS: INSULIN LISPRO 100 UNIT/ML SUBCUT SCH ×5 (01:04→21:24)
[2019-07-20] MEDS: ALBUTEROL/IPRATROPIUM 3 ML NEB RESP TX SCH ×6 (03:15→23:12)
[2019-07-20 03:53] LABS: Basophils % 0.1 % (0.0-0.8); Hematocrit 32.5 VOL% (35.7-47.0); Hemoglobin 9.9 GM/DL (12.0-16.0); Immature Granulocytes % 0.3 %; Immature Granulocytes Absolute 0.03 #; Lymphocytes # 1.1 10*3/uL (1.4-4.0); Lymphocytes % 12.2 % (21.3-54.2); Mean Corpuscular HGB Conc 30.5 GM/DL (32-36); Mean Corpuscular Volume 90.8 FL (87-102); Mean Platelet Volume 9.8 FL (9.6-12.0); Monocytes % 10.2 % (1.7-12.7); Neutrophils % 77.2 % (38.7-73.9); Platelet Count 314 T/CUMM (130-400); Red Blood Count 3.58 MC/CUMM (3.8-5.5); Red Cell Distribution Width 12.6 % (9.3-17.3); White Blood Count 8.9 T/CUMM (4-12)
[2019-07-20 04:12] LABS: Calcium 8.6 MG/DL (8.5-10.1); Osmolality,Calculated 281.5 MOS/KG (273-304)
[2019-07-20] MEDS: MEROPENEM 500 MG in SODIUM CHLORIDE 0.9% 100 ML IV SCH ×3 (05:27→21:28)
[2019-07-20] MEDS: CARVEDILOL 6.25 MG TABLET PO SCH ×2 (08:22→18:10)
[2019-07-20] MEDS: sitaGLIPtin 100 MG TABLET PO SCH (08:22)
[2019-07-20] MEDS: LOSARTAN 50 MG TABLET PO SCH (08:22)
[2019-07-20] MEDS: POTASSIUM CHLORIDE 20 MEQ TABLET PO SCH (08:22)
[2019-07-20] MEDS: ESCITALOPRAM 10 MG TABLET PO SCH (08:22)
[2019-07-20] MEDS: APIXABAN 5 MG TABLET PO SCH ×2 (08:22→21:19)
[2019-07-20] MEDS: FERROUS SULFATE 325 MG TABLET PO SCH ×2 (08:23→21:19)
[2019-07-20] MEDS: PANTOPRAZOLE 40 MG VIAL IV SCH (08:23)
[2019-07-20] MEDS: DEXTROSE 5% 1,000 ML IV SCH (14:25)
[2019-07-20] MEDS: ACETAMINOPHEN 325 MG/10.15 ML UDCUP PER TUBE PRN (14:25)
[2019-07-20] MEDS: hydrALAZINE 20 MG/1 ML VIAL IV PRN (14:30)
[2019-07-20] MEDS ORDERED: SODIUM CHLORIDE 0.9% 500 ML IV ONE (16:42)
[2019-07-20] MEDS: levETIRAcetam 250 MG TABLET PO SCH (21:18)
[2019-07-20] MEDS: FOLIC ACID 1 MG TABLET PO SCH (21:18)
[2019-07-20] MEDS: ASPIRIN EC 81 MG TABLET PO SCH (21:19)
[2019-07-21] MEDS: ALBUTEROL/IPRATROPIUM 3 ML NEB RESP TX SCH ×5 (03:22→19:01)
[2019-07-21 04:43] LABS: Basophils % 0.3 % (0.0-0.8); Eosinophils # 0.2 10*3/uL (0.0-0.87); Eosinophils % 3.3 % (0.00-10.9); Hematocrit 31.9 VOL% (35.7-47.0); Hemoglobin 9.7 GM/DL (12.0-16.0); Immature Granulocytes % 0.3 %; Immature Granulocytes Absolute 0.02 #; Lymphocytes % 29.1 % (21.3-54.2); Mean Corpuscular HGB Conc 30.4 GM/DL (32-36); Mean Corpuscular Volume 90.9 FL (87-102); Mean Platelet Volume 9.9 FL (9.6-12.0); Monocytes % 8.9 % (1.7-12.7); Neutrophils % 58.1 % (38.7-73.9); Platelet Count 325 T/CUMM (130-400); Red Blood Count 3.51 MC/CUMM (3.8-5.5); Red Cell Distribution Width 12.5 % (9.3-17.3); White Blood Count 6.7 T/CUMM (4-12)
[2019-07-21 05:19] LABS: Osmolality,Calculated 287.8 MOS/KG (273-304)
[2019-07-21] MEDS: MEROPENEM 500 MG in SODIUM CHLORIDE 0.9% 100 ML IV SCH ×3 (06:07→21:50)
[2019-07-21] MEDS: levETIRAcetam 250 MG TABLET PO SCH ×2 (08:47→21:49)
[2019-07-21] MEDS: POTASSIUM CHLORIDE 20 MEQ TABLET PO SCH (08:47)
[2019-07-21] MEDS: FERROUS SULFATE 325 MG TABLET PO SCH ×2 (08:47→21:49)
[2019-07-21] MEDS: sitaGLIPtin 100 MG TABLET PO SCH (08:47)
[2019-07-21] MEDS: CARVEDILOL 6.25 MG TABLET PO SCH ×2 (08:47→17:17)
[2019-07-21] MEDS: LOSARTAN 50 MG TABLET PO SCH (08:47)
[2019-07-21] MEDS: APIXABAN 5 MG TABLET PO SCH ×2 (08:48→21:50)
[2019-07-21] MEDS: PANTOPRAZOLE 40 MG VIAL IV SCH (08:48)
[2019-07-21] MEDS ORDERED: PHENOL 1.4% THROAT SPRAY 177 ML BOTTLE PO PRN (09:16)
[2019-07-21] MEDS: INSULIN LISPRO 100 UNIT/ML SUBCUT SCH ×4 (09:18→20:38)
[2019-07-21] MEDS: ESCITALOPRAM 10 MG TABLET PO SCH (09:55)
[2019-07-21] MEDS: ACETAMINOPHEN 325 MG/10.15 ML UDCUP PER TUBE PRN (13:59)
[2019-07-21] MEDS: ASPIRIN EC 81 MG TABLET PO SCH (21:49)
[2019-07-21] MEDS: FOLIC ACID 1 MG TABLET PO SCH (21:49)
[2019-07-22] MEDS: ALBUTEROL/IPRATROPIUM 3 ML NEB RESP TX SCH ×4 (03:34→11:00)
[2019-07-22 04:19] LABS: Basophils % 0.4 % (0.0-0.8); Eosinophils # 0.3 10*3/uL (0.0-0.87); Eosinophils % 4.2 % (0.00-10.9); Hematocrit 32.9 VOL% (35.7-47.0); Hemoglobin 9.8 GM/DL (12.0-16.0); Immature Granulocytes % 0.3 %; Immature Granulocytes Absolute 0.02 #; Lymphocytes # 2.1 10*3/uL (1.4-4.0); Lymphocytes % 29.9 % (21.3-54.2); Mean Corpuscular HGB Conc 29.8 GM/DL (32-36); Mean Corpuscular Volume 91.9 FL (87-102); Mean Platelet Volume 9.7 FL (9.6-12.0); Monocytes % 8.7 % (1.7-12.7); Neutrophils % 56.5 % (38.7-73.9); Platelet Count 360 T/CUMM (130-400); Red Blood Count 3.58 MC/CUMM (3.8-5.5); Red Cell Distribution Width 12.4 % (9.3-17.3)
[2019-07-22 04:47] LABS: Calcium 9.2 MG/DL (8.5-10.1); Osmolality,Calculated 286.1 MOS/KG (273-304)
[2019-07-22] MEDS: MEROPENEM 500 MG in SODIUM CHLORIDE 0.9% 100 ML IV SCH (05:50)
[2019-07-22] MEDS: CARVEDILOL 6.25 MG TABLET PO SCH (08:31)
[2019-07-22] MEDS: APIXABAN 5 MG TABLET PO SCH (08:32)
[2019-07-22] MEDS: FERROUS SULFATE 325 MG TABLET PO SCH (08:32)
[2019-07-22] MEDS: ESCITALOPRAM 10 MG TABLET PO SCH (08:33)
[2019-07-22] MEDS: levETIRAcetam 250 MG TABLET PO SCH (08:34)
[2019-07-22] MEDS: sitaGLIPtin 100 MG TABLET PO SCH (08:35)
[2019-07-22] MEDS: LOSARTAN 50 MG TABLET PO SCH (08:35)
[2019-07-22] MEDS: POTASSIUM CHLORIDE 20 MEQ TABLET PO SCH (08:35)
[2019-07-22] MEDS: PANTOPRAZOLE 40 MG VIAL IV SCH (08:36)
[2019-07-22] MEDS: INSULIN LISPRO 100 UNIT/ML SUBCUT SCH ×2 (10:13→11:47)
[2019-07-22] MEDS: ACETAMINOPHEN 325 MG/10.15 ML UDCUP PER TUBE PRN (10:31)
[2019-07-22 12:27] VITALS: BP 129/88
== END 2019-07-22 12:55 | disposition home health service (06) | DRG 100 ==
LOC: EDBD → EDUNIT# → N.ED 08:53 → N.EDINP 12:07 → N.ICU 13:11 → N.4E 07-12 18:29 → N.ICU 07-18 03:00 → N.4E 07-20 19:31
PROVIDERS: ADMIT Family Medicine; ATTEND Family Medicine